=== PATIENT | male | born 1975 | race Caucasian/White ===

== ENCOUNTER 2020-12-13 18:34 | Inpatient (IN) | payer MEDICAID ==
[~2020-12-13] VITALS: Ht 182.9 cm; Wt 95.5 kg
[2020-12-13 19:34] LABS: BASOPHILS # (AUTO) 0.1 X10'3 (0-0.2); BASOPHILS % (AUTO) 0.7 % (0-1); EOSINOPHILS # (AUTO) 0.1 X10'3 (0-0.9); EOSINOPHILS % (AUTO) 0.9 % (0-6); HEMATOCRIT 41.1 % (42.0-52.0); HEMOGLOBIN 13.4 g/dl (14.0-17.9); LYMPHOCYTES # (AUTO) 1.6 X10'3 (1.1-4.8); LYMPHOCYTES % (AUTO) 11.4 % (21-51); MEAN CORPUSCULAR HEMOGLOBIN 31.4 PG (27.0-31.0); MEAN CORPUSCULAR HGB CONC 32.7 g/dL (33.0-36.5); MEAN CORPUSCULAR VOLUME 95.8 FL (78-98); MEAN PLATELET VOLUME 7.9 FL (7.4-10.4); MONOCYTES # (AUTO) 0.7 X10'3 (0-0.9); MONOCYTES % (AUTO) 5.1 % (2-12); NEUTROPHILS # (AUTO) 11.1 X10'3 (1.8-7.7); NEUTROPHILS % (AUTO) 81.9 % (42-75); PLATELET COUNT 322 X10'3 (140-440); RED BLOOD COUNT 4.28 X10'6 (4.70-6.10); RED CELL DISTRIBUTION WIDTH 14.7 % (11.5-14.5); WHITE BLOOD COUNT 13.6 X10'3 (4.5-11.0)
[2020-12-13 19:38] LABS: ALANINE AMINOTRANSFERASE 32 U/L (12-78); ALBUMIN 2.9 G/DL (3.4-5.0); ALBUMIN/GLOBULIN RATIO 0.5 (1.1-1.5); ALKALINE PHOSPHATASE 115 IU/L (46-116); ANION GAP 14 (8-16); ASPARTATE AMINO TRANSFERASE 26 U/L (10-37); BILIRUBIN,TOTAL 1.1 MG/DL (0.1-1.0); BLOOD UREA NITROGEN 13 MG/DL (7-18); BUN/CREATININE RATIO 11.6 (5.4-32.0); CALCIUM 8.7 MG/DL (8.5-10.1); CHLORIDE 104 MMOL/L (99-107); CREATININE 1.12 MG/DL (0.60-1.10); GLUCOSE 110 MG/DL (70-104); POTASSIUM 3.8 MMOL/L (3.5-5.1); SODIUM 139 MMOL/L (135-145); TOTAL CARBON DIOXIDE 21.2 MMOL/L (24-32); TOTAL PROTEIN 8.2 G/DL (6.4-8.2); eGFR 71 ML/MIN
--- NOTE | 2020-12-13 20:03 | NUR ---
PT HAS A WHITE COUNT AND CXR SHOWS PNA, SO BC AND LA ORDERED UNDER SO.
[2020-12-13 20:19] LABS: ETHANOL 0.053 GM/DL (0.0-0.010)
[2020-12-13 20:32] LABS: CLARITY,URINE CLEAR (Clear); COLOR,URINE YELLOW (Yellow); GLUCOSE, URINE NEGATIVE (Neg); KETONES,URINE NEGATIVE (Neg); LEUKOCYTE ESTERASE ,URINE NEGATIVE (Neg); NITRITES, URINE NEGATIVE (Neg); OCCULT BLOOD,URINE NEGATIVE (Neg); PROTEIN,URINE 30 mg/dl (Neg); UROBILINOGEN,URINE 0.2 E.U/dL (0.2-1.0)
[2020-12-13 20:34] LABS: UA COLLECTION TYPE VOIDED
[2020-12-13 20:38] LABS: WBC,URINE NONE SEEN /HPF (0-4)
[2020-12-13 20:39] LABS: BACTERIA,URINE NONE SEEN /HPF (Neg); RBC,URINE NONE SEEN /HPF (0-2); SQUAMOUS EPITHELIAL CELL,UR NONE SEEN /LPF (FEW)
[2020-12-13] MEDS ORDERED: piperacillin/tazo 3.375gm/50ml 50 ML IV ONE (22:45)
[2020-12-13] MEDS ORDERED: vancomycin/NS 1 GM ADD-VANTAGE 250 ML IV ONE (22:45)
[2020-12-13] MEDS ORDERED: iohexol 300mg/ml 100ml inj. ONE (22:54)
[2020-12-13 23:13] LABS: URINE AMPHETAMINE SCREEN POSITIVE (Neg); URINE BARBITUATE SCREEN NEGATIVE (Neg); URINE BENZODIAZEPINES SCREEN NEGATIVE (Neg); URINE CANNABINOID SCREEN POSITIVE (Neg); URINE COCAINE SCREEN NEGATIVE (Neg); URINE METHADONE SCREEN NEGATIVE (Neg); URINE OPIATE SCREEN NEGATIVE (Neg); URINE PHENCYCLIDINE SCREEN NEGATIVE (Neg)
[2020-12-13] MEDS ORDERED: ondansetron/PF 4mg/2ml inj IV ONE (23:15)
[2020-12-13] MEDS: morphine 4 MG/ML inj SYRINge IV PRN (23:39)
[2020-12-13] MEDS ORDERED: morphine 4 MG/ML inj SYRINge IV ONE (23:40)
[2020-12-13] MEDS ORDERED: normal saline 1000ML IV soln IVB ONE (23:45)
[2020-12-13 23:46] LABS: C-REACTIVE PROTEIN 8.62 MG/DL (0.0-0.5)
[2020-12-14] MEDS ORDERED: vancomycin/NS 1 GM ADD-VANTAGE 250 ML IV ONE
[2020-12-14] MEDS ORDERED: LIDOcaine 1% W/epiNEPHrine 1:200,000 10ml vial IJ ONE (00:30)
[2020-12-14] MEDS ORDERED: fentaNYL/PF 50MCG/1 ML 2ML syringe IV ONE (00:55)
[2020-12-14] MEDS ORDERED: metoprolol tartrate 1mg/ml inj IV ONE (01:50)
[2020-12-14] MEDS ORDERED: acetaminophen 325mg tablet PO PRN (04:20)
[2020-12-14] MEDS ORDERED: ondansetron/PF 4mg/2ml inj IV PRN (04:20)
[2020-12-14] MEDS ORDERED: magnesium 4gm in 100ml NS 100 ML IV PRN (04:20)
[2020-12-14] MEDS ORDERED: magnesium 2GM in 50ml NS 50 ML IV PRN (04:20)
[2020-12-14] MEDS ORDERED: potassium Cl 40MEQ/1/2NS 520ml 520 ML IV PRN ×2 (04:20)
[2020-12-14] MEDS ORDERED: morphine 2 MG/ML inj. syringe IV PRN (04:20)
[2020-12-14] MEDS ORDERED: magnesium Cl slow-release 64mg tablet PO PRN (04:20)
[2020-12-14] MEDS ORDERED: potassium Cl 20 mEq SR tablet PO PRN ×2 (04:20)
[2020-12-14] MEDS ORDERED: LIDOcaine 1% 30ml preserv. free vial SQ STA (07:38)
[2020-12-14] MEDS: morphine 4 MG/ML inj SYRINge IV PRN (07:45)
[2020-12-14] MEDS: K and/or MAG REPLACEMENT MC SCH ×2 (08:00→20:00)
[2020-12-14] MEDS ORDERED: furosemide 10 MG/1 ML 10ml inj IV SCH (08:00)
[2020-12-14] MEDS: piperacillin/tazo 4.5gm/100ml 100 ML IV SCH ×2 (08:15→16:29)
[2020-12-14] MEDS: docusate sod 100mg capsule PO SCH ×2 (08:16→21:03)
[2020-12-14 09:15] LABS: BASOPHILS # (AUTO) 0.1 X10'3 (0-0.2); BASOPHILS % (AUTO) 0.5 % (0-1); EOSINOPHILS # (AUTO) 0.2 X10'3 (0-0.9); EOSINOPHILS % (AUTO) 1.7 % (0-6); HEMATOCRIT 39.8 % (42.0-52.0); HEMOGLOBIN 12.9 g/dl (14.0-17.9); LYMPHOCYTES # (AUTO) 2.1 X10'3 (1.1-4.8); LYMPHOCYTES % (AUTO) 17.4 % (21-51); MEAN CORPUSCULAR HGB CONC 32.5 g/dL (33.0-36.5); MEAN CORPUSCULAR VOLUME 95.5 FL (78-98); MEAN PLATELET VOLUME 7.8 FL (7.4-10.4); MONOCYTES # (AUTO) 0.8 X10'3 (0-0.9); MONOCYTES % (AUTO) 6.7 % (2-12); NEUTROPHILS % (AUTO) 73.7 % (42-75); PLATELET COUNT 324 X10'3 (140-440); RED BLOOD COUNT 4.17 X10'6 (4.70-6.10); RED CELL DISTRIBUTION WIDTH 14.9 % (11.5-14.5); WHITE BLOOD COUNT 12.3 X10'3 (4.5-11.0)
[2020-12-14 09:32] LABS: ALANINE AMINOTRANSFERASE 27 U/L (12-78); ALBUMIN 2.8 G/DL (3.4-5.0); ALBUMIN/GLOBULIN RATIO 0.5 (1.1-1.5); ALKALINE PHOSPHATASE 107 IU/L (46-116); ANION GAP 10 (8-16); ASPARTATE AMINO TRANSFERASE 27 U/L (10-37); BILIRUBIN,TOTAL 2.3 MG/DL (0.1-1.0); BLOOD UREA NITROGEN 16 MG/DL (7-18); BUN/CREATININE RATIO 11.9 (5.4-32.0); CALCIUM 8.7 MG/DL (8.5-10.1); CHLORIDE 105 MMOL/L (99-107); CREATININE 1.34 MG/DL (0.60-1.10); GLUCOSE 90 MG/DL (70-104); POTASSIUM 4.4 MMOL/L (3.5-5.1); SODIUM 139 MMOL/L (135-145); TOTAL CARBON DIOXIDE 24.4 MMOL/L (24-32); TOTAL PROTEIN 7.9 G/DL (6.4-8.2); eGFR 57 ML/MIN
[2020-12-14] MEDS: vancomycin/NS 1 GM ADD-VANTAGE 250 ML IV SCH ×2 (12:15→23:59)
[2020-12-14] MEDS ORDERED: MULT-1085 PO (12:39)
--- NOTE | 2020-12-14 13:29 | NUR ---
Patient in room ED 8. I have received report from Shahana and had the opportunity to ask questions and assume patient care.
[2020-12-14 13:45] VITALS: BP 118/78
[2020-12-14 15:00] VITALS: BP 125/87
[2020-12-14] MEDS: morphine 2 MG/ML inj. syringe IV PRN (15:09)
[2020-12-14] MEDS: LORazepam 0.5 MG tablet PO PRN ×2 (15:56→22:08)
[2020-12-14] MEDS: carVEDilol 3.125mg tablet PO SCH ×2 (16:29→21:03)
[2020-12-14] MEDS: lisinopril 5mg tablet PO SCH (16:29)
[2020-12-14 18:00] VITALS: BP 117/94
--- NOTE | 2020-12-14 18:17 | NUR ---
Patient in room MED 309. I have received report from Dakota MOSS and had the opportunity to ask questions and assume patient care.
--- NOTE | 2020-12-14 18:35 | NUR ---
Problems reprioritized. Patient report given, questions answered & plan of care reviewed with Bree MOSS.
[2020-12-14] MEDS: mag hydrox/Alum hydrox/simeth 30ml oral suspension PO PRN (20:59)
[2020-12-14] MEDS: furosemide 40mg/4ml inj IV SCH (21:02)
[2020-12-14] MEDS: lactobacillus rhamnosus 10,000 MMU CELLS/CAPSULE PO SCH (21:03)
[2020-12-14] MEDS: HYDROcodone/acetaminophen 5mg/325mg tablet PO PRN (21:04)
--- NOTE | 2020-12-14 21:17 | NUR ---
ATTEMPTED TO FIND PEDAL PULSES BILATERAL FEET VIA DOPPLER; LEFT POSTERIOR TIBIAL AND PEDAL FOUND, RIGHT FOOT ONLY POSTERIOR TIBIAL FOUND, GAVE LASIX-GOING TO REEVALUATER WITH CARMEN MOSS, IN 15 MINUTES, WILL INFORM MD IF RIGHT FOOT PEDAL PULSE NOT FOUND. Addendum: 12/14/20 at 0448 by Bree Lay RN REASSESSED RIGHT PEDAL PULSE WITH DOPPLER, FOUND SITE, SHANITA
[2020-12-14 22:00] VITALS: BP 125/90
--- NOTE | 2020-12-14 23:18 | NUR ---
GRAM POSITIVE COOCI IN CLUSTERSREPORTED BY LAB, WILL CALL MD FOR NEW ORDERS, POSSIBLE BILATERAL LOWER EXTREMITY VASCULAR ULTRASOUND FOR GRAYISH, EDEMETOUS EXTREMITIES, NON-PAPLPABLE PULSES, RIGHT COLD TO THE TOUCH FOOT,; NEEDS COVID SCREEN ADDITIONALLY DANIEL MOSS
--- NOTE | 2020-12-14 23:56 | NUR ---
DR. OROZCO ORDERED ARTERIAL US IN AM R/O DVT; MG, PHOS, LIPASE, LIPDS, TSH, LACTIC IN AM CHOLMES RN
[2020-12-15] VITALS (7 sets, daily range): BP systolic 85–121; BP diastolic 56–84
[2020-12-15] MEDS: mag hydrox/Alum hydrox/simeth 30ml oral suspension PO PRN (01:37)
[2020-12-15] MEDS: LORazepam 0.5 MG tablet PO PRN ×2 (01:38→20:43)
[2020-12-15] MEDS: HYDROcodone/acetaminophen 5mg/325mg tablet PO PRN ×4 (01:38→20:43)
[2020-12-15] MEDS ORDERED: nitroGLYCERIN 0.4mg SUBLingual tab SL PRN (02:20)
[2020-12-15] MEDS ORDERED: aspirin 325mg tablet, delayed-release (Ecotrin) PO ONE (02:20)
[2020-12-15 05:08] LABS: ANION GAP 12 (8-16); BLOOD UREA NITROGEN 20 MG/DL (7-18); BUN/CREATININE RATIO 14.7 (5.4-32.0); CHLORIDE 97 MMOL/L (99-107); CHOLESTEROL 155 MG/DL (0-200); CREATININE 1.36 MG/DL (0.60-1.10); GLUCOSE 81 MG/DL (70-104); HDL CHOLESTEROL 22 MG/DL (35-60); LDL CHOLESTEROL 122 MG/DL (50-100); LIPASE < 50 U/L (73-393); MAGNESIUM 1.8 MG/DL (1.5-2.4); POTASSIUM 4.6 MMOL/L (3.5-5.1); SODIUM 134 MMOL/L (135-145); TOTAL CARBON DIOXIDE 25.1 MMOL/L (24-32); TRIGLYCERIDES 90 MG/DL (20-135); eGFR 56 ML/MIN
--- NOTE | 2020-12-15 06:16 | NUR ---
Problems reprioritized. Patient report given, questions answered & plan of care reviewed with FLORINA RN.
--- NOTE | 2020-12-15 06:28 | NUR ---
RECEIVED BEDSIDE REPORT FROM RICKY MOSS. UPDATED THE BOARD AND INTRODUCED MYSELF TO PT
[2020-12-15 07:05] LABS: BASOPHILS # (AUTO) 0.1 X10'3 (0-0.2); BASOPHILS % (AUTO) 0.5 % (0-1); EOSINOPHILS # (AUTO) 0.1 X10'3 (0-0.9); EOSINOPHILS % (AUTO) 0.6 % (0-6); HEMATOCRIT 37.6 % (42.0-52.0); HEMOGLOBIN 12.2 g/dl (14.0-17.9); LYMPHOCYTES % (AUTO) 8.1 % (21-51); MEAN CORPUSCULAR HEMOGLOBIN 31.1 PG (27.0-31.0); MEAN CORPUSCULAR HGB CONC 32.5 g/dL (33.0-36.5); MEAN CORPUSCULAR VOLUME 95.7 FL (78-98); MONOCYTES # (AUTO) 1.1 X10'3 (0-0.9); MONOCYTES % (AUTO) 8.8 % (2-12); PLATELET COUNT 289 X10'3 (140-440); RED BLOOD COUNT 3.93 X10'6 (4.70-6.10); RED CELL DISTRIBUTION WIDTH 15.3 % (11.5-14.5); WHITE BLOOD COUNT 12.1 X10'3 (4.5-11.0)
[2020-12-15] MEDS: K and/or MAG REPLACEMENT MC SCH ×2 (08:00→20:00)
[2020-12-15] MEDS: furosemide 40mg/4ml inj IV SCH ×2 (08:54→20:46)
[2020-12-15] MEDS: lactobacillus rhamnosus 10,000 MMU CELLS/CAPSULE PO SCH ×2 (08:55→20:42)
[2020-12-15] MEDS: carVEDilol 3.125mg tablet PO SCH ×2 (08:55→20:00)
[2020-12-15] MEDS: aspirin 81mg tablet.DR PO SCH (08:55)
[2020-12-15] MEDS: docusate sod 100mg capsule PO SCH ×2 (08:55→20:43)
[2020-12-15] MEDS: lisinopril 5mg tablet PO SCH (08:55)
[2020-12-15] MEDS: piperacillin/tazo 4.5gm/100ml 100 ML IV SCH ×3 (08:55→17:14)
--- NOTE | 2020-12-15 10:59 | NUR ---
PAGER ID: [phone] MESSAGE: [phone] JOSELINE ZHOU. TSH 16.28, LACTIC ACID 2.2, WBC 12.1 NO FEVER AT THIS TIME. I DIDNT KNOW HOW YOU WANT TO ADDRESS THE TSH
[2020-12-15] MEDS ORDERED: VANCOMYCIN LEVEL IV ONE (11:30)
[2020-12-15 11:46] LABS: VANCOMYCIN,TROUGH 13.4 UG/ML (6.0-14.0)
[2020-12-15] MEDS: vancomycin/NS 1 GM ADD-VANTAGE 250 ML IV SCH (12:11)
[2020-12-15] MEDS: morphine 2 MG/ML inj. syringe IV PRN ×2 (13:27→22:13)
--- NOTE | 2020-12-15 19:18 | NUR ---
Patient in room MED 309. I have received report from ELEN MOSS and had the opportunity to ask questions and assume patient care.
--- NOTE | 2020-12-15 19:28 | NUR ---
Problems reprioritized. Patient report given, questions answered & plan of care reviewed with Bree.
[2020-12-15] MEDS ORDERED: pneumococcal 23-VAL P-sac vacc 25 mcg/0.5ml vial IMVAC ONE (20:00)
[2020-12-15] MEDS ORDERED: FLU VACC QS2020-21(6MOS UP)/PF 60 MCG/0.5 ML SYRINGE IMVAC ONE (20:00)
[2020-12-16] MEDS: VANCOmycin 1250MG/NS 250ml Bag 250 ML IV SCH ×3 (00:31→23:56)
[2020-12-16] MEDS: piperacillin/tazo 4.5gm/100ml 100 ML IV SCH ×3 (00:33→16:00)
[2020-12-16 03:15] VITALS: BP 114/78
--- NOTE | 2020-12-16 06:15 | NUR ---
Patient in room MED 309. I have received report from raine Giron and had the opportunity to ask questions and assume patient care.
--- NOTE | 2020-12-16 06:26 | NUR ---
Problems reprioritized. Patient report given, questions answered & plan of care reviewed with Khurram MOSS.
[2020-12-16 06:52] LABS: ALBUMIN 2.6 G/DL (3.4-5.0); ANION GAP 12 (8-16); BLOOD UREA NITROGEN 27 MG/DL (7-18); BUN/CREATININE RATIO 22.3 (5.4-32.0); CALCIUM 8.6 MG/DL (8.5-10.1); CHLORIDE 98 MMOL/L (99-107); CREATININE 1.21 MG/DL (0.60-1.10); GLUCOSE 94 MG/DL (70-104); MAGNESIUM 2.3 MG/DL (1.5-2.4); SODIUM 134 MMOL/L (135-145); TOTAL CARBON DIOXIDE 24.3 MMOL/L (24-32); eGFR 65 ML/MIN
[2020-12-16] MEDS: levoTHYROXINE 25mcg tablet PO SCH (07:00)
[2020-12-16 07:03] LABS: POTASSIUM 4.6 MMOL/L (3.5-5.1)
[2020-12-16 07:35] VITALS: BP 100/70
[2020-12-16] MEDS: K and/or MAG REPLACEMENT MC SCH ×2 (08:00→20:00)
[2020-12-16] MEDS: furosemide 40mg/4ml inj IV SCH ×2 (08:37→19:56)
[2020-12-16] MEDS: docusate sod 100mg capsule PO SCH ×3 (08:38→20:00)
[2020-12-16] MEDS: lactobacillus rhamnosus 10,000 MMU CELLS/CAPSULE PO SCH ×2 (08:38→19:56)
[2020-12-16] MEDS: lisinopril 5mg tablet PO SCH (08:38)
[2020-12-16] MEDS: aspirin 81mg tablet.DR PO SCH (08:38)
[2020-12-16] MEDS: carVEDilol 3.125mg tablet PO SCH ×2 (08:38→19:56)
[2020-12-16 09:06] LABS: BASOPHILS # (AUTO) 0.1 X10'3 (0-0.2); BASOPHILS % (AUTO) 0.6 % (0-1); EOSINOPHILS # (AUTO) 0.2 X10'3 (0-0.9); EOSINOPHILS % (AUTO) 2.3 % (0-6); HEMATOCRIT 40.4 % (42.0-52.0); HEMOGLOBIN 13.4 g/dl (14.0-17.9); LYMPHOCYTES # (AUTO) 1.5 X10'3 (1.1-4.8); LYMPHOCYTES % (AUTO) 14.7 % (21-51); MEAN CORPUSCULAR HEMOGLOBIN 31.7 PG (27.0-31.0); MEAN CORPUSCULAR HGB CONC 33.1 g/dL (33.0-36.5); MEAN CORPUSCULAR VOLUME 95.8 FL (78-98); MEAN PLATELET VOLUME 7.9 FL (7.4-10.4); MONOCYTES # (AUTO) 1.1 X10'3 (0-0.9); MONOCYTES % (AUTO) 10.2 % (2-12); NEUTROPHILS # (AUTO) 7.5 X10'3 (1.8-7.7); NEUTROPHILS % (AUTO) 72.2 % (42-75); PLATELET COUNT 288 X10'3 (140-440); RED BLOOD COUNT 4.22 X10'6 (4.70-6.10); RED CELL DISTRIBUTION WIDTH 15.1 % (11.5-14.5); WHITE BLOOD COUNT 10.4 X10'3 (4.5-11.0)
[2020-12-16] MEDS: HYDROcodone/acetaminophen 5mg/325mg tablet PO PRN (09:24)
[2020-12-16] MEDS: LORazepam 0.5 MG tablet PO PRN (09:24)
[2020-12-16] MEDS: morphine 2 MG/ML inj. syringe IV PRN ×2 (10:19→17:07)
[2020-12-16 10:30] VITALS: BP 96/57
[2020-12-16] MEDS ORDERED: LORazepam 0.5 MG tablet PO PRN (11:55)
[2020-12-16] MEDS ORDERED: magnesium hydroxide 30ml (MOM) UD suspension PO PRN (12:00)
[2020-12-16 14:00] VITALS: BP 91/64
--- NOTE | 2020-12-16 18:12 | NUR ---
report recieved from and discussed with Josefa MOSS
--- NOTE | 2020-12-16 18:29 | NUR ---
Problems reprioritized. Patient report given, questions answered & plan of care reviewed with ISA WHALEN.
[2020-12-16 22:00] VITALS: BP 104/75
[2020-12-17] MEDS: piperacillin/tazo 4.5gm/100ml 100 ML IV SCH ×3 (01:57→16:00)
[2020-12-17] MEDS: morphine 2 MG/ML inj. syringe IV PRN ×2 (03:08→10:01)
[2020-12-17 03:47] VITALS: BP 103/76
--- NOTE | 2020-12-17 04:18 | NUR ---
Scrotal dressing change done, area cleaned with saline and sponge gauze and packed with 1/4 inch of curad. patient was pre medicated with 2mg morphine.
[2020-12-17 06:00] VITALS: BP 112/84
[2020-12-17 06:18] LABS: BASOPHILS # (AUTO) 0.1 X10'3 (0-0.2); EOSINOPHILS # (AUTO) 0.3 X10'3 (0-0.9); EOSINOPHILS % (AUTO) 2.2 % (0-6); HEMATOCRIT 38.3 % (42.0-52.0); HEMOGLOBIN 12.5 g/dl (14.0-17.9); LYMPHOCYTES # (AUTO) 1.8 X10'3 (1.1-4.8); LYMPHOCYTES % (AUTO) 14.1 % (21-51); MEAN CORPUSCULAR HGB CONC 32.6 g/dL (33.0-36.5); MONOCYTES # (AUTO) 0.8 X10'3 (0-0.9); MONOCYTES % (AUTO) 6.8 % (2-12); NEUTROPHILS # (AUTO) 9.5 X10'3 (1.8-7.7); NEUTROPHILS % (AUTO) 75.9 % (42-75); PLATELET COUNT 297 X10'3 (140-440); RED BLOOD COUNT 4.03 X10'6 (4.70-6.10); WHITE BLOOD COUNT 12.5 X10'3 (4.5-11.0)
--- NOTE | 2020-12-17 06:22 | NUR ---
report given to and discussed with raine ANDRE
--- NOTE | 2020-12-17 06:29 | NUR ---
Patient in room MED 309. I have received report from raine vincent and had the opportunity to ask questions and assume patient care.
[2020-12-17 06:35] LABS: ALBUMIN 2.7 G/DL (3.4-5.0); ANION GAP 7 (8-16); BLOOD UREA NITROGEN 24 MG/DL (7-18); BUN/CREATININE RATIO 18.3 (5.4-32.0); CALCIUM 8.6 MG/DL (8.5-10.1); CHLORIDE 100 MMOL/L (99-107); CREATININE 1.31 MG/DL (0.60-1.10); GLUCOSE 121 MG/DL (70-104); MAGNESIUM 2.2 MG/DL (1.5-2.4); POTASSIUM 4.9 MMOL/L (3.5-5.1); SODIUM 137 MMOL/L (135-145); TOTAL CARBON DIOXIDE 29.9 MMOL/L (24-32); eGFR 59 ML/MIN
[2020-12-17] MEDS: aspirin 81mg tablet.DR PO SCH (07:57)
[2020-12-17] MEDS: furosemide 40mg/4ml inj IV SCH (07:57)
[2020-12-17] MEDS: lactobacillus rhamnosus 10,000 MMU CELLS/CAPSULE PO SCH (07:58)
[2020-12-17] MEDS: levoTHYROXINE 25mcg tablet PO SCH (07:58)
[2020-12-17] MEDS: lisinopril 5mg tablet PO SCH (07:58)
[2020-12-17] MEDS: docusate sod 100mg capsule PO SCH ×2 (07:59→08:09)
[2020-12-17] MEDS: carVEDilol 3.125mg tablet PO SCH (08:09)
[2020-12-17] MEDS: K and/or MAG REPLACEMENT MC SCH (08:10)
[2020-12-17 10:00] VITALS: BP 108/72
[2020-12-17] MEDS ORDERED: VANCOMYCIN LEVEL IV ONE (11:30)
[2020-12-17 14:00] VITALS: BP 110/68
[2020-12-17] MEDS ORDERED: vancomycin/NS 1 GM ADD-VANTAGE 250 ML IV SCH (14:00)
[2020-12-17] MEDS ORDERED: LEVO25TA7 PO (16:22)
[2020-12-17] MEDS ORDERED: POTA10TA36 PO (16:22)
[2020-12-17] MEDS ORDERED: LISI-642 PO (16:22)
[2020-12-17] MEDS ORDERED: ASPI-1071 PO (16:22)
[2020-12-17] MEDS ORDERED: FURO-149 PO (16:22)
[2020-12-17] MEDS ORDERED: COR3.125T PO (16:22)
--- NOTE | 2020-12-17 17:00 | NUR ---
pt amb in hallways on room air,sao2 with amb remains 97-99% correlating well with heart rate.pt does become sob with amb ,resp rate up 24-28 after amb 40 ft.
--- NOTE | 2020-12-17 17:43 | NUR ---
PAGER ID: [phone] MESSAGE: MANDY [phone], HELGAJUSTUS. Please see Dr. Carter note, recommendation for augmentin on discharge, this is not included in the discharge medications. Please advise. [phone] Josefa
--- NOTE | 2020-12-17 18:30 | NUR ---
Problems reprioritized. Patient report given, questions answered & plan of care reviewed with .raine vincent
--- NOTE | 2020-12-17 19:26 | NUR ---
patient is discharged, all documents signed and questions answered.
[2020-12-19] MEDS ORDERED: VANCOMYCIN LEVEL IV ONE (01:30)
== END 2020-12-17 20:00 | disposition home health service (06) | DRG 720 ==
LOC: ER 18:35 → UNDOADMIN 12-14 04:20 → ED HOLD 12-14 04:20 → MED 3N 12-14 14:14 → ED HOLD 12-14 14:14 → UNDODISIN 12-17 20:00
PROVIDERS: ADMIT Internal Medicine; ATTEND Internal Medicine
PROC: 0V95XZZ Drainage of Scrotum, External Approach (ICD-10-PCS; 2020-12-13)
PROC: BW2G1ZZ Computerized Tomography (CT Scan) of Pelvic Region using Low Osmolar Contrast (ICD-10-PCS; 2020-12-13)
PROC: 0V950ZZ Drainage of Scrotum, Open Approach (ICD-10-PCS; principal; 2020-12-14)
PROC: 3E0234Z Introduction of Serum, Toxoid and Vaccine into Muscle, Percutaneous Approach (ICD-10-PCS; 2020-12-15)
PROC: 3E02340 Introduction of Influenza Vaccine into Muscle, Percutaneous Approach (ICD-10-PCS; 2020-12-15)
DX: A41.9 Sepsis, unspecified organism (principal); E03.9 Hypothyroidism, unspecified; F12.90 Cannabis use, unspecified, uncomplicated; F15.90 Other stimulant use, unspecified, uncomplicated; G89.29 Other chronic pain; I42.9 Cardiomyopathy, unspecified; F17.210 Nicotine dependence, cigarettes, uncomplicated; N43.3 Hydrocele, unspecified; F19.10 Other psychoactive substance abuse, uncomplicated; I50.23 Acute on chronic systolic (congestive) heart failure; L05.91 Pilonidal cyst without abscess; M21.371 Foot drop, right foot; N17.9 Acute kidney failure, unspecified; N49.2 Inflammatory disorders of scrotum; M54.5 Low back pain; Z23 Encounter for immunization; Z88.8 Allergy status to other drugs, medicaments and biological substances; Z71.6 Tobacco abuse counseling
CPT/HCPCS: 10060; 36415; 71045; 72193; 76870; 76937; 80048; 80053; 80061; 80202; 80305; 80320; 81001; 83605; 83690; 83735; 83880; 84100; 84145; 84439; 84443; 84480; 84484; 85025; 85651; 86140; 87040; 87070; 87077; 87081; 90732; 93005; 93306; 93308; 93922; 93970; 93976; 96365; 96366; 96368; 96375; 99285; G0378; J1940; J2270; J2405; J2543; J3010; J3370; J3490; J7030; Q2039; Q9967

== ENCOUNTER 2021-01-22 17:27 | Emergency (ER) | payer MEDICAID ==
[~2021-01-22] VITALS: Ht 182.9 cm; Wt 91.0 kg
[~2021-01-22 17:27] MED LIST: ASPI-1071 PO; COR3.125T PO; FURO-149 PO; LEVO25TA7 PO; LISI-642 PO; MULT-1085 PO; POTA10TA36 PO
[2021-01-22 17:33] VITALS: BP 125/82
[2021-01-22] MEDS ORDERED: DOXYCYCLINE 100MG CAPSULE PO STA (18:37)
[2021-01-22] MEDS ORDERED: CEPH250T PO (18:40)
[2021-01-22] MEDS ORDERED: ondansetron 4mg rapidly disintigrating tab PO ONE (18:40)
[2021-01-22] MEDS ORDERED: cephalexin 250mg capsule PO ONE (18:40)
[2021-01-22] MEDS ORDERED: DOXY100C43 PO (18:40)
== END 2021-01-22 18:50 | disposition home or self-care (01) ==
LOC: ER 17:27
DX: N49.2 Inflammatory disorders of scrotum (principal); G89.29 Other chronic pain; F12.90 Cannabis use, unspecified, uncomplicated; F15.90 Other stimulant use, unspecified, uncomplicated; Z72.89 Other problems related to lifestyle; Z98.890 Other specified postprocedural states; Z88.8 Allergy status to other drugs, medicaments and biological substances; Z79.82 Long term (current) use of aspirin; Z79.899 Other long term (current) drug therapy
CPT/HCPCS: 99284

== ENCOUNTER 2021-03-14 14:42 | Emergency (ER) | payer MEDICAID ==
[~2021-03-14] VITALS: Ht 182.9 cm; Wt 95.0 kg
[2021-03-14 14:52] VITALS: BP 111/78
[2021-03-14] MEDS ORDERED: bacitracin 15gm ointment TP ONE (15:15)
[2021-03-14] MEDS ORDERED: LIDOcaine 1% W/epiNEPHrine 1:200,000 10ml vial IJ ONE (15:15)
== END 2021-03-14 17:29 | disposition home or self-care (01) ==
LOC: ER 14:43
DX: S51.812A Laceration without foreign body of left forearm, initial encounter (principal); G89.29 Other chronic pain; F12.90 Cannabis use, unspecified, uncomplicated; F15.90 Other stimulant use, unspecified, uncomplicated; Z98.890 Other specified postprocedural states; Z72.89 Other problems related to lifestyle; Z88.8 Allergy status to other drugs, medicaments and biological substances; Z79.82 Long term (current) use of aspirin; Z79.899 Other long term (current) drug therapy; X58.XXXA Exposure to other specified factors, initial encounter; Y93.89 Activity, other specified; Y92.89 Other specified places as the place of occurrence of the external cause; Y99.8 Other external cause status
CPT/HCPCS: 12002; 99282

== ENCOUNTER 2021-05-27 03:00 | Emergency (ER) | payer MEDICAID ==
[~2021-05-27] VITALS: Ht 182.9 cm; Wt 97.0 kg
[2021-05-27 03:05] VITALS: BP 154/99
[2021-05-27] MEDS ORDERED: ERYT1OIN6 RIGHTEYE (03:25)
[2021-05-27] MEDS ORDERED: proparacaine 0.5% ophthalmic drops 15ml EACHEYE ONE ×2 (03:25→03:35)
== END 2021-05-27 04:01 | disposition home or self-care (01) ==
LOC: ER 03:02
DX: T15.01XA Foreign body in cornea, right eye, initial encounter (principal); I42.7 Cardiomyopathy due to drug and external agent; G89.29 Other chronic pain; F12.90 Cannabis use, unspecified, uncomplicated; F15.90 Other stimulant use, unspecified, uncomplicated; Z72.89 Other problems related to lifestyle; Z79.82 Long term (current) use of aspirin; Z79.2 Long term (current) use of antibiotics; Z79.899 Other long term (current) drug therapy; Z88.8 Allergy status to other drugs, medicaments and biological substances; X58.XXXA Exposure to other specified factors, initial encounter; Y93.89 Activity, other specified; Y92.89 Other specified places as the place of occurrence of the external cause; Y99.8 Other external cause status
CPT/HCPCS: 65222; 99283; 99284

== ENCOUNTER 2021-09-15 08:30 | Inpatient (IN) | payer MEDICAID ==
[~2021-09-15] VITALS: Ht 182.9 cm; Wt 98.6 kg
[~2021-09-15 08:30] MED LIST changes: -POTA10TA36 PO; +POTA10TA37 PO
[2021-09-15 09:05] LABS: BASOPHILS # (AUTO) 0.2 X10'3 (0-0.2); BASOPHILS % (AUTO) 1.4 % (0-1); EOSINOPHILS # (AUTO) 0.3 X10'3 (0-0.9); EOSINOPHILS % (AUTO) 2.2 % (0-6); HEMATOCRIT 40.7 % (42.0-52.0); HEMOGLOBIN 14.2 g/dl (14.0-17.9); LYMPHOCYTES # (AUTO) 2.9 X10'3 (1.1-4.8); LYMPHOCYTES % (AUTO) 21.5 % (21-51); MEAN CORPUSCULAR HEMOGLOBIN 30.4 PG (27.0-31.0); MEAN CORPUSCULAR HGB CONC 34.9 g/dL (33.0-36.5); MEAN CORPUSCULAR VOLUME 87.2 FL (78-98); MEAN PLATELET VOLUME 8.1 FL (7.4-10.4); MONOCYTES # (AUTO) 0.8 X10'3 (0-0.9); MONOCYTES % (AUTO) 6.1 % (2-12); NEUTROPHILS # (AUTO) 9.3 X10'3 (1.8-7.7); NEUTROPHILS % (AUTO) 68.8 % (42-75); PLATELET COUNT 369 X10'3 (140-440); RED BLOOD COUNT 4.66 X10'6 (4.70-6.10); WHITE BLOOD COUNT 13.5 X10'3 (4.5-11.0)
[2021-09-15 09:40] LABS: ALANINE AMINOTRANSFERASE 22 U/L (12-78); ALBUMIN 3.6 G/DL (3.4-5.0); ALBUMIN/GLOBULIN RATIO 0.7 (1.1-1.5); ALKALINE PHOSPHATASE 108 IU/L (46-116); ANION GAP 3 (8-16); ASPARTATE AMINO TRANSFERASE 17 U/L (10-37); BILIRUBIN,TOTAL 1.1 MG/DL (0.1-1.0); BLOOD UREA NITROGEN 27 MG/DL (7-18); BUN/CREATININE RATIO 21.8 (5.4-32.0); CALCIUM 8.9 MG/DL (8.5-10.1); CHLORIDE 98 MMOL/L (99-107); CREATININE 1.24 MG/DL (0.60-1.10); GLUCOSE 102 MG/DL (70-104); POTASSIUM 4.1 MMOL/L (3.5-5.1); SODIUM 124 MMOL/L (135-145); TOTAL CARBON DIOXIDE 22.8 MMOL/L (24-32); TOTAL PROTEIN 8.7 G/DL (6.4-8.2); eGFR 62 ML/MIN
[2021-09-15] MEDS ORDERED: furosemide 10 MG/1 ML 10ml inj IV ONE (10:05)
[2021-09-15] MEDS ORDERED: mag hydrox/Alum hydrox/simeth 30ml oral suspension PO PRN (10:50)
[2021-09-15] MEDS ORDERED: magnesium 4gm in 100ml NS 100 ML IV PRN (10:50)
[2021-09-15] MEDS ORDERED: ondansetron/PF 4mg/2ml inj IV PRN (10:50)
[2021-09-15] MEDS ORDERED: metoprolol tartrate 1mg/ml inj IV PRN (10:50)
[2021-09-15] MEDS ORDERED: HYDROcodone/acetaminophen 5mg/325mg tablet PO PRN (10:50)
[2021-09-15] MEDS ORDERED: nitroGLYCERIN 0.4mg SUBLingual tab SL PRN (10:50)
[2021-09-15] MEDS ORDERED: morphine 2 MG/ML inj. syringe IV PRN ×2 (10:50)
[2021-09-15] MEDS ORDERED: potassium CL 10mEq/100ml bag 100 ML IV PRN (10:50)
[2021-09-15] MEDS ORDERED: potassium Cl 20 mEq SR tablet PO PRN ×2 (10:50)
[2021-09-15] MEDS ORDERED: aminophylline 250mg/10ml inj. IV PRN (10:50)
[2021-09-15] MEDS ORDERED: magnesium 2GM in 50ml NS 50 ML IV PRN (10:50)
[2021-09-15] MEDS ORDERED: magnesium Cl slow-release 64mg tablet PO PRN (10:50)
[2021-09-15] MEDS ORDERED: acetaminophen 325mg tablet PO PRN ×2 (10:50)
[2021-09-15] MEDS ORDERED: regadenoson 0.4mg/5ml syringe IV ONE (10:50)
[2021-09-15] MEDS ORDERED: albuterol 2.5 MG/3 ML nebule NEB PRN (10:55)
[2021-09-15 11:30] LABS: D-DIMER 0.65 MG/L FEU (0-0.50)
[2021-09-15 11:51] LABS: URINE AMPHETAMINE SCREEN POSITIVE (Neg); URINE BARBITUATE SCREEN NEGATIVE (Neg); URINE BENZODIAZEPINES SCREEN NEGATIVE (Neg); URINE CANNABINOID SCREEN POSITIVE (Neg); URINE COCAINE SCREEN NEGATIVE (Neg); URINE METHADONE SCREEN NEGATIVE (Neg); URINE OPIATE SCREEN NEGATIVE (Neg); URINE PHENCYCLIDINE SCREEN NEGATIVE (Neg)
--- NOTE | 2021-09-15 12:06 | NUR ---
PATIENT REQUESTS SOMETHING TO DRINK, BUT IS NPO PER ORDER. DR. CARMICHAEL PAGED TO CLARIFY DIET ORDER. NUCLEAR MED STATES THAT THE INOCENCIA SCAN WILL BE DONE TOMORROW, SO SHE SHOULD BE KEPT NPO AFTER MIDNIGHT.
--- NOTE | 2021-09-15 14:48 | NUR ---
RECEIVED REPORT FROM ED RN
[2021-09-15 15:44] VITALS: BP 132/91
[2021-09-15] MEDS: HYDROcodone/acetaminophen 10/325mg tab PO PRN ×2 (15:57→22:25)
[2021-09-15] MEDS: nicotine 14mg patch - 24hr TD SCH (15:58)
[2021-09-15] MEDS: normal saline 1000ml 1,000 ML IV SCH (16:07)
[2021-09-15 18:00] VITALS: BP 121/94
--- NOTE | 2021-09-15 18:10 | NUR ---
gave report to raine lynn
[2021-09-15] MEDS: K and/or MAG REPLACEMENT MC SCH (19:58)
[2021-09-15] MEDS: carVEDilol 3.125mg tablet PO SCH (20:00)
[2021-09-15] MEDS: heparin, porcine 5000 units/ml vial SQ SCH (20:00)
[2021-09-15 22:00] VITALS: BP 111/81
[2021-09-15] MEDS: temazepam 15mg capsule PO PRN (22:25)
[2021-09-16 02:00] VITALS: BP 104/81
[2021-09-16 06:40] LABS: BASOPHILS # (AUTO) 0.1 X10'3 (0-0.2); BASOPHILS % (AUTO) 0.7 % (0-1); EOSINOPHILS # (AUTO) 0.4 X10'3 (0-0.9); EOSINOPHILS % (AUTO) 3.8 % (0-6); HEMATOCRIT 45.3 % (42.0-52.0); HEMOGLOBIN 15.3 g/dl (14.0-17.9); LYMPHOCYTES # (AUTO) 2.7 X10'3 (1.1-4.8); LYMPHOCYTES % (AUTO) 26.5 % (21-51); MEAN CORPUSCULAR HEMOGLOBIN 30.2 PG (27.0-31.0); MEAN CORPUSCULAR HGB CONC 33.8 g/dL (33.0-36.5); MEAN CORPUSCULAR VOLUME 89.2 FL (78-98); MEAN PLATELET VOLUME 8.3 FL (7.4-10.4); MONOCYTES # (AUTO) 0.9 X10'3 (0-0.9); NEUTROPHILS # (AUTO) 6.2 X10'3 (1.8-7.7); PLATELET COUNT 390 X10'3 (140-440); RED BLOOD COUNT 5.07 X10'6 (4.70-6.10); RED CELL DISTRIBUTION WIDTH 13.7 % (11.5-14.5); WHITE BLOOD COUNT 10.3 X10'3 (4.5-11.0)
--- NOTE | 2021-09-16 06:41 | NUR ---
Patient in room MED 318. I have received report from ISA Sandoval and had the opportunity to ask questions and assume patient care. Patient asleep in bed and in no acute distress.
[2021-09-16] MEDS: normal saline 1000ml 1,000 ML IV SCH (06:50)
[2021-09-16 07:00] VITALS: BP 114/80
[2021-09-16 07:02] LABS: ALANINE AMINOTRANSFERASE 22 U/L (12-78); ALBUMIN 3.7 G/DL (3.4-5.0); ALBUMIN/GLOBULIN RATIO 0.7 (1.1-1.5); ALKALINE PHOSPHATASE 113 IU/L (46-116); ANION GAP 9 (8-16); ASPARTATE AMINO TRANSFERASE 21 U/L (10-37); BILIRUBIN,TOTAL 1.7 MG/DL (0.1-1.0); BLOOD UREA NITROGEN 32 MG/DL (7-18); BUN/CREATININE RATIO 26.4 (5.4-32.0); CALCIUM 9.2 MG/DL (8.5-10.1); CHLORIDE 99 MMOL/L (99-107); CHOL/HDL RATIO 6.9 (0.00-4.99); CHOLESTEROL 249 MG/DL (0-200); CREATININE 1.21 MG/DL (0.60-1.10); GLUCOSE 90 MG/DL (70-104); HDL CHOLESTEROL 36 MG/DL (35-60); LDL CHOLESTEROL 189 MG/DL (50-100); POTASSIUM 4.4 MMOL/L (3.5-5.1); SODIUM 136 MMOL/L (135-145); TOTAL CARBON DIOXIDE 27.7 MMOL/L (24-32); TOTAL PROTEIN 9.3 G/DL (6.4-8.2); TRIGLYCERIDES 120 MG/DL (20-135); eGFR 64 ML/MIN
--- NOTE | 2021-09-16 07:09 | NUR ---
Paged Dr. Carbone regarding patient's EF and that they are scheduled for the sinan scan this morning. PAGER ID: [phone] MESSAGE: [phone]. ADOLPH TREVIZO. PATIENT'S EF IS 20-25%. WOULD YOU STILL LIKE FOR THE PATIENT TO HAVE A STRESS TEST? THANK YOU. AMADOU MOSS X [phone]
[2021-09-16] MEDS: K and/or MAG REPLACEMENT MC SCH ×2 (08:00→20:00)
[2021-09-16] MEDS: heparin, porcine 5000 units/ml vial SQ SCH ×2 (08:00→20:37)
[2021-09-16] MEDS: carVEDilol 3.125mg tablet PO SCH ×2 (09:05→20:35)
[2021-09-16] MEDS: levoTHYROXINE 25mcg tablet PO SCH (09:05)
[2021-09-16] MEDS: lisinopril 5mg tablet PO SCH (09:06)
[2021-09-16] MEDS: aspirin 81mg, enteric-coated 1 TAB TABLET.DR PO SCH (09:06)
[2021-09-16] MEDS: furosemide 40mg/4ml inj IV SCH (09:07)
[2021-09-16] MEDS: nicotine 14mg patch - 24hr TD SCH (09:08)
--- NOTE | 2021-09-16 09:10 | NUR ---
Problems reprioritized. Patient report given, questions answered & plan of care reviewed with ISA Magaña. Patient stable at transfer of care.
--- NOTE | 2021-09-16 09:15 | NUR ---
Patient in room MED 318. I have received report from Sanaz MOSS and had the opportunity to ask questions and assume patient care.
[2021-09-16 11:00] VITALS: BP 101/62
--- NOTE | 2021-09-16 14:25 | NUR ---
Problems reprioritized. Patient report given, questions answered & plan of care reviewed with Ela MOSS.
--- NOTE | 2021-09-16 14:30 | NUR ---
Patient in room MED 318. I have received report from ISA VASQUEZ, and had the opportunity to ask questions and assume patient care.
[2021-09-16 15:00] VITALS: BP 113/77
--- NOTE | 2021-09-16 18:37 | NUR ---
Problems reprioritized. Patient report given, questions answered & plan of care reviewed with ISA OMALLEY.
[2021-09-16] MEDS: temazepam 15mg capsule PO PRN (20:35)
[2021-09-16] MEDS: HYDROcodone/acetaminophen 10/325mg tab PO PRN (20:36)
[2021-09-16 22:00] VITALS: BP 97/60
[2021-09-17 02:00] VITALS: BP 111/73
[2021-09-17] MEDS: normal saline 1000ml 1,000 ML IV SCH ×2 (02:50→05:33)
[2021-09-17 06:00] VITALS: BP 104/78
[2021-09-17 06:17] LABS: BASOPHILS # (AUTO) 0.1 X10'3 (0-0.2); BASOPHILS % (AUTO) 0.6 % (0-1); EOSINOPHILS # (AUTO) 0.5 X10'3 (0-0.9); EOSINOPHILS % (AUTO) 3.9 % (0-6); HEMATOCRIT 44.1 % (42.0-52.0); HEMOGLOBIN 14.9 g/dl (14.0-17.9); LYMPHOCYTES # (AUTO) 2.1 X10'3 (1.1-4.8); LYMPHOCYTES % (AUTO) 17.8 % (21-51); MEAN CORPUSCULAR HEMOGLOBIN 30.1 PG (27.0-31.0); MEAN CORPUSCULAR HGB CONC 33.8 g/dL (33.0-36.5); MEAN CORPUSCULAR VOLUME 89.1 FL (78-98); MEAN PLATELET VOLUME 7.9 FL (7.4-10.4); MONOCYTES % (AUTO) 8.4 % (2-12); NEUTROPHILS # (AUTO) 8.3 X10'3 (1.8-7.7); NEUTROPHILS % (AUTO) 69.3 % (42-75); PLATELET COUNT 379 X10'3 (140-440); RED BLOOD COUNT 4.95 X10'6 (4.70-6.10); RED CELL DISTRIBUTION WIDTH 13.8 % (11.5-14.5); WHITE BLOOD COUNT 11.9 X10'3 (4.5-11.0)
[2021-09-17 06:24] LABS: ALANINE AMINOTRANSFERASE 22 U/L (12-78); ALBUMIN 3.4 G/DL (3.4-5.0); ALBUMIN/GLOBULIN RATIO 0.7 (1.1-1.5); ALKALINE PHOSPHATASE 106 IU/L (46-116); ANION GAP 8 (8-16); ASPARTATE AMINO TRANSFERASE 17 U/L (10-37); BILIRUBIN,TOTAL 1.5 MG/DL (0.1-1.0); BLOOD UREA NITROGEN 30 MG/DL (7-18); BUN/CREATININE RATIO 26.5 (5.4-32.0); CALCIUM 8.9 MG/DL (8.5-10.1); CHLORIDE 101 MMOL/L (99-107); CREATININE 1.13 MG/DL (0.60-1.10); GLUCOSE 82 MG/DL (70-104); POTASSIUM 4.4 MMOL/L (3.5-5.1); SODIUM 136 MMOL/L (135-145); TOTAL CARBON DIOXIDE 26.7 MMOL/L (24-32); TOTAL PROTEIN 8.4 G/DL (6.4-8.2); eGFR 70 ML/MIN
[2021-09-17] MEDS: K and/or MAG REPLACEMENT MC SCH (08:00)
[2021-09-17] MEDS: nicotine 14mg patch - 24hr TD SCH (08:00)
[2021-09-17] MEDS: furosemide 40mg/4ml inj IV SCH (09:27)
[2021-09-17] MEDS: heparin, porcine 5000 units/ml vial SQ SCH (09:27)
[2021-09-17] MEDS: aspirin 81mg, enteric-coated 1 TAB TABLET.DR PO SCH (09:28)
[2021-09-17] MEDS: levoTHYROXINE 25mcg tablet PO SCH (09:29)
[2021-09-17] MEDS: carVEDilol 3.125mg tablet PO SCH (09:29)
[2021-09-17] MEDS: lisinopril 5mg tablet PO SCH (09:30)
[2021-09-17 10:00] VITALS: BP 112/78
--- NOTE | 2021-09-17 10:30 | NUR ---
Patient waiting on life vest, will discharge after fitting.
--- NOTE | 2021-09-17 13:23 | NUR ---
Patient discharged on paper, all paper work completed and signed.
--- NOTE | 2021-09-17 14:16 | NUR ---
Patient discharged to [facility] by . Patient A&Ox4, VSS. Patient will be fitted with Life Vest at his home. Home medications sent home on discharge. Patient aware of next home doses. No new medications on discharge. Patient aware to follow up with PCP and to call for appointment. Patient educated on discharge with verbal acknowledgement from patient of understanding.
== END 2021-09-17 13:40 | disposition home or self-care (01) | DRG 194 ==
LOC: ER 08:31 → ED HOLD 10:53 → EDBEDREQ 14:27 → MED 3N 14:59
PROVIDERS: ADMIT Internal Medicine; ATTEND Internal Medicine
PROC: 5A0935A Assistance with Respiratory Ventilation, Less than 24 Consecutive Hours, High Flow/Velocity Cannula (ICD-10-PCS; principal; 2021-09-17)
DX: I50.23 Acute on chronic systolic (congestive) heart failure (principal); N17.9 Acute kidney failure, unspecified; E87.1 Hypo-osmolality and hyponatremia; I42.7 Cardiomyopathy due to drug and external agent; F12.90 Cannabis use, unspecified, uncomplicated; F15.10 Other stimulant abuse, uncomplicated; E03.9 Hypothyroidism, unspecified; Z20.822 Contact with and (suspected) exposure to COVID-19; F17.210 Nicotine dependence, cigarettes, uncomplicated; G89.29 Other chronic pain; M54.9 Dorsalgia, unspecified; R26.2 Difficulty in walking, not elsewhere classified; R79.89 Other specified abnormal findings of blood chemistry; Z72.89 Other problems related to lifestyle; Z88.8 Allergy status to other drugs, medicaments and biological substances
CPT/HCPCS: 36415; 71045; 80053; 80061; 80305; 83880; 84484; 85025; 85379; 87081; 87635; 93005; 93306; 96374; 99285; G0378; J1644; J1940; J7030

== ENCOUNTER 2021-11-06 06:45 | Inpatient (IN) | payer MEDICAID ==
[~2021-11-06] VITALS: Ht 180.3 cm; Wt 104.0 kg
--- NOTE | 2021-11-06 07:23 | NUR ---
Pt admits to using meth 4 days ago. Now states that he has severe sob. Lung sounds are coarse throughout all thompson and sats >98% on RA. Also, has a rash on B hands and neck.
--- NOTE | 2021-11-06 07:27 | NUR ---
Pt is wearing knee high compression socks. His B LE are painful to touch. He has ulcers under his socks.
--- NOTE | 2021-11-06 07:51 | NUR ---
Pt stated that he has doubled up on his lasix and potassium. He provider is not aware.
[2021-11-06 08:20] VITALS: BP 119/87
[2021-11-06 08:41] LABS: BASOPHILS # (AUTO) 0.2 X10'3 (0-0.2); BASOPHILS % (AUTO) 1.8 % (0-1); EOSINOPHILS # (AUTO) 0.2 X10'3 (0-0.9); EOSINOPHILS % (AUTO) 1.5 % (0-6); HEMATOCRIT 37.4 % (42.0-52.0); HEMOGLOBIN 12.5 g/dl (14.0-17.9); LYMPHOCYTES # (AUTO) 1.8 X10'3 (1.1-4.8); LYMPHOCYTES % (AUTO) 14.5 % (21-51); MEAN CORPUSCULAR HEMOGLOBIN 29.3 PG (27.0-31.0); MEAN CORPUSCULAR HGB CONC 33.4 g/dL (33.0-36.5); MEAN CORPUSCULAR VOLUME 87.9 FL (78-98); MEAN PLATELET VOLUME 7.4 FL (7.4-10.4); MONOCYTES # (AUTO) 0.9 X10'3 (0-0.9); MONOCYTES % (AUTO) 6.9 % (2-12); NEUTROPHILS # (AUTO) 9.5 X10'3 (1.8-7.7); NEUTROPHILS % (AUTO) 75.3 % (42-75); PLATELET COUNT 412 X10'3 (140-440); RED BLOOD COUNT 4.25 X10'6 (4.70-6.10); RED CELL DISTRIBUTION WIDTH 14.6 % (11.5-14.5); WHITE BLOOD COUNT 12.6 X10'3 (4.5-11.0)
[2021-11-06 08:51] LABS: ALANINE AMINOTRANSFERASE 71 U/L (12-78); ALBUMIN 3.3 G/DL (3.4-5.0); ALBUMIN/GLOBULIN RATIO 0.6 (1.1-1.5); ALKALINE PHOSPHATASE 106 IU/L (46-116); ANION GAP 12 (8-16); ASPARTATE AMINO TRANSFERASE 72 U/L (10-37); BILIRUBIN,TOTAL 2.2 MG/DL (0.1-1.0); BLOOD UREA NITROGEN 26 MG/DL (7-18); BUN/CREATININE RATIO 16.9 (5.4-32.0); CALCIUM 8.6 MG/DL (8.5-10.1); CHLORIDE 100 MMOL/L (99-107); CREATININE 1.54 MG/DL (0.60-1.10); GLUCOSE 95 MG/DL (70-104); POTASSIUM 4.2 MMOL/L (3.5-5.1); SODIUM 137 MMOL/L (135-145); TOTAL PROTEIN 8.4 G/DL (6.4-8.2); eGFR 49 ML/MIN
[2021-11-06] MEDS ORDERED: aspirin 81mg tab.chew PO ONE (09:30)
[2021-11-06] MEDS ORDERED: heparin 10,000 units/1 ML INJ IV ONE ×2 (09:30→09:35)
[2021-11-06] MEDS: heparin 25,000 UNIT/250ml bag 250 ML IV SCH (09:30)
[2021-11-06 10:11] LABS: APTT 27 SECONDS (22-32); D-DIMER 2.92 MG/L FEU (0-0.50)
[2021-11-06] MEDS ORDERED: magnesium hydroxide 30ml (MOM) UD suspension PO PRN (10:55)
[2021-11-06] MEDS ORDERED: potassium CL 10mEq/100ml bag 100 ML IV PRN (10:55)
[2021-11-06] MEDS ORDERED: magnesium Cl slow-release 64mg tablet PO PRN (10:55)
[2021-11-06] MEDS ORDERED: ondansetron/PF 4mg/2ml inj IV PRN (10:55)
[2021-11-06] MEDS ORDERED: morphine 2 MG/ML inj. syringe IV PRN (10:55)
[2021-11-06] MEDS ORDERED: acetaminophen 325mg tablet PO PRN ×2 (10:55)
[2021-11-06] MEDS ORDERED: magnesium 2GM in 50ml NS 50 ML IV PRN (10:55)
[2021-11-06] MEDS ORDERED: magnesium 4gm in 100ml NS 100 ML IV PRN (10:55)
[2021-11-06] MEDS ORDERED: heparin 10,000 units/1 ML INJ IV PRN (10:55)
[2021-11-06] MEDS ORDERED: heparin 25,000 UNIT/250ml bag 250 ML IV SCH (10:55)
[2021-11-06] MEDS ORDERED: potassium Cl 20 mEq SR tablet PO PRN ×2 (10:55)
[2021-11-06] MEDS ORDERED: mag hydrox/Alum hydrox/simeth 30ml oral suspension PO PRN (10:55)
[2021-11-06] MEDS ORDERED: HYDROcodone/acetaminophen 10/325mg tab PO PRN (10:55)
[2021-11-06] MEDS ORDERED: iohexol 350MG/ML 100ml bottle IV ONE (11:04)
[2021-11-06 11:31] LABS: MAGNESIUM 2.2 MG/DL (1.5-2.4)
--- NOTE | 2021-11-06 12:05 | NUR ---
Pt taken to CT by telecommunication tower technician.
[2021-11-06] MEDS: CefTRIAXone/D5W-Rocephin 1gm 50 ML IV SCH (12:36)
[2021-11-06] MEDS: nicotine 14mg patch - 24hr TD SCH (12:36)
[2021-11-06] MEDS: furosemide 20 MG/2 ML vial IV SCH ×2 (12:37→20:17)
[2021-11-06] MEDS: normal saline 1000ml 1,000 ML IV SCH (12:37)
[2021-11-06] MEDS ORDERED: POTA10CA44 PO (12:46)
[2021-11-06] MEDS ORDERED: ASPI-611 PO (12:46)
[2021-11-06] MEDS ORDERED: CARV3.122 PO (12:46)
[2021-11-06] MEDS ORDERED: LISI5TAB22 PO (12:46)
[2021-11-06] MEDS ORDERED: LEVO50TA8 PO (12:46)
[2021-11-06] MEDS ORDERED: FURO40TA4 PO (12:46)
[2021-11-06] MEDS ORDERED: GABA-530 PO (12:47)
--- NOTE | 2021-11-06 12:53 | NUR ---
Pt continues to c/o pain in B LE.
[2021-11-06] MEDS: gabapentin 100mg capsule PO SCH (16:06)
[2021-11-06 16:14] LABS: URINE AMPHETAMINE SCREEN POSITIVE (Neg); URINE BARBITUATE SCREEN NEGATIVE (Neg); URINE BENZODIAZEPINES SCREEN NEGATIVE (Neg); URINE CANNABINOID SCREEN POSITIVE (Neg); URINE COCAINE SCREEN NEGATIVE (Neg); URINE METHADONE SCREEN NEGATIVE (Neg); URINE OPIATE SCREEN NEGATIVE (Neg); URINE PHENCYCLIDINE SCREEN NEGATIVE (Neg)
--- NOTE | 2021-11-06 16:16 | NUR ---
Attempted to call and give report twice with no results. Both the charge nurse and I tried on 2 separate occations.
[2021-11-06 16:20] LABS: CLARITY,URINE CLEAR (Clear); COLOR,URINE YELLOW (Yellow); GLUCOSE, URINE NEGATIVE (Neg); KETONES,URINE NEGATIVE (Neg); LEUKOCYTE ESTERASE ,URINE NEGATIVE (Neg); NITRITES, URINE NEGATIVE (Neg); OCCULT BLOOD,URINE NEGATIVE (Neg); PH,URINE 5.5 (4.8-8.0); PROTEIN,URINE NEGATIVE (Neg); UA COLLECTION TYPE NON-SPECIFIED; UROBILINOGEN,URINE 0.2 E.U/dL (0.2-1.0)
--- NOTE | 2021-11-06 16:41 | NUR ---
Report given to ISA Saleem in PCU.
[2021-11-06 17:00] VITALS: BP 119/87
[2021-11-06 17:34] LABS: APTT 32 SECONDS (22-32)
--- NOTE | 2021-11-06 19:39 | NUR ---
Patient received from the ED at 1700 with no distress noted. He is alert and oriented X4. He denied pain on arrival to the unit. Patient was made comfortable in bed, vital signs taken and call light in reach. Report given to receiving nurse.
--- NOTE | 2021-11-06 19:39 | NUR ---
Problems reprioritized. Patient report given, questions answered & plan of care reviewed with Sarahi.
[2021-11-06] MEDS: K and/or MAG REPLACEMENT MC SCH (20:00)
[2021-11-06 20:20] VITALS: BP 119/87
[2021-11-06] MEDS: carVEDilol 3.125mg tablet PO SCH (20:20)
[2021-11-06] MEDS: docusate sod 100mg capsule PO SCH (20:20)
[2021-11-07] MEDS: LORazepam 1 MG tablet PO PRN ×2 (00:14→08:15)
[2021-11-07] MEDS: temazepam 15mg capsule PO PRN (00:15)
[2021-11-07] MEDS: gabapentin 100mg capsule PO SCH ×3 (00:16→15:55)
[2021-11-07 00:44] LABS: APTT 33 SECONDS (22-32)
[2021-11-07 02:00] VITALS: BP 108/70
[2021-11-07] MEDS: heparin 10,000 units/1 ML INJ IV PRN ×2 (03:25→11:03)
[2021-11-07 07:00] VITALS: BP 127/93
[2021-11-07 07:10] LABS: BASOPHILS # (AUTO) 0.1 X10'3 (0-0.2); BASOPHILS % (AUTO) 0.9 % (0-1); EOSINOPHILS # (AUTO) 0.2 X10'3 (0-0.9); EOSINOPHILS % (AUTO) 1.4 % (0-6); HEMATOCRIT 40.4 % (42.0-52.0); HEMOGLOBIN 13.2 g/dl (14.0-17.9); LYMPHOCYTES # (AUTO) 2.5 X10'3 (1.1-4.8); LYMPHOCYTES % (AUTO) 20.9 % (21-51); MEAN CORPUSCULAR HEMOGLOBIN 29.2 PG (27.0-31.0); MEAN CORPUSCULAR HGB CONC 32.7 g/dL (33.0-36.5); MEAN CORPUSCULAR VOLUME 89.1 FL (78-98); MEAN PLATELET VOLUME 7.7 FL (7.4-10.4); MONOCYTES # (AUTO) 0.8 X10'3 (0-0.9); NEUTROPHILS # (AUTO) 8.2 X10'3 (1.8-7.7); NEUTROPHILS % (AUTO) 69.8 % (42-75); PLATELET COUNT 441 X10'3 (140-440); RED BLOOD COUNT 4.53 X10'6 (4.70-6.10); RED CELL DISTRIBUTION WIDTH 14.8 % (11.5-14.5); WHITE BLOOD COUNT 11.7 X10'3 (4.5-11.0)
[2021-11-07 07:20] LABS: ALANINE AMINOTRANSFERASE 116 U/L (12-78); ALBUMIN 3.6 G/DL (3.4-5.0); ALBUMIN/GLOBULIN RATIO 0.7 (1.1-1.5); ALKALINE PHOSPHATASE 120 IU/L (46-116); ANION GAP 13 (8-16); BILIRUBIN,TOTAL 3.5 MG/DL (0.1-1.0); BLOOD UREA NITROGEN 31 MG/DL (7-18); BUN/CREATININE RATIO 21.4 (5.4-32.0); CALCIUM 8.8 MG/DL (8.5-10.1); CHLORIDE 99 MMOL/L (99-107); CREATININE 1.45 MG/DL (0.60-1.10); GLUCOSE 96 MG/DL (70-104); MAGNESIUM 2.3 MG/DL (1.5-2.4); SODIUM 136 MMOL/L (135-145); TOTAL CARBON DIOXIDE 23.9 MMOL/L (24-32); TOTAL PROTEIN 9.1 G/DL (6.4-8.2); eGFR 52 ML/MIN
[2021-11-07 07:21] LABS: ASPARTATE AMINO TRANSFERASE 116 U/L (10-37); POTASSIUM 4.2 MMOL/L (3.5-5.1)
[2021-11-07] MEDS: K and/or MAG REPLACEMENT MC SCH ×2 (08:00→20:00)
[2021-11-07] MEDS: furosemide 20 MG/2 ML vial IV SCH (08:12)
[2021-11-07] MEDS: aspirin 81mg, enteric-coated 1 TAB TABLET.DR PO SCH (08:13)
[2021-11-07] MEDS: lisinopril 5mg tablet PO SCH (08:14)
[2021-11-07] MEDS: docusate sod 100mg capsule PO SCH ×2 (08:15→20:16)
[2021-11-07] MEDS: carVEDilol 3.125mg tablet PO SCH ×2 (08:15→20:16)
[2021-11-07] MEDS: nicotine 14mg patch - 24hr TD SCH (08:15)
[2021-11-07] MEDS: potassium chloride 10mEq ER tablet PO SCH (08:18)
[2021-11-07] MEDS: CefTRIAXone/D5W-Rocephin 1gm 50 ML IV SCH (08:19)
[2021-11-07] MEDS: levoTHYROXINE 25mcg tablet PO SCH (08:30)
[2021-11-07] MEDS ORDERED: LORazepam 2 mg/ml vial IV PRN (10:05)
[2021-11-07] MEDS: cetirizine 10mg tablet PO SCH (10:55)
[2021-11-07 11:00] VITALS: BP 101/74
[2021-11-07] MEDS: heparin 25,000 UNIT/250ml bag 250 ML IV SCH (11:04)
[2021-11-07 15:00] VITALS: BP 114/68
--- NOTE | 2021-11-07 15:27 | NUR ---
WOUND INFECTION EDUCATION PROVIDED BY WOUND CARE 1. Patient instructed to call their primary doctor, or go the ED immediately if any of the following symptoms occur: * Increased pain in wound * Increase in drainage from the wound * Redness in the skin surrounding the wound * Warmth in the skin surrounding the wound * Bleeding from the wound * Temperature of 101 or greater 2. If any of these occur while in the hospital tell a nurse immediately. PRESSURE ULCER EDUCATION: DEFINITION: A pressure ulcer is an area of skin that breaks down when you stay in one position too long. The constant pressure against the skin reduces the blood flow to that area and the affected tissue dies. CAUSES: "Being bedridden or in a wheelchair "Fragile skin "Having a chronic condition, such as diabetes or vascular disease "Inability to move certain parts of your body without assistance "Older age "Incontinence of urine or stool SYMPTOMS: "A reddened area that DOES NOT turn white when pressed on - this can be the beginning of a pressure ulcer "A blister, deep sore or a crater - these can be advanced pressure ulcers FIRST AID: "Relieve the pressure on this area "Keep the area clean and dry "Call your primary doctor if you see any of the above symptoms "DO NOT massage the area "DO NOT use a donut shaped or ring shaped pillow- these actually interfere with the blood flow and cause complications PREVENTION: "Check for pressure ulcers everyday "Change position at least every two hours to relieve pressure "Use items that help relieve pressure- pillows, sheepskin, foam padding, and powders. "Keep skin clean and dry "Eat healthy well balanced meals "Exercise daily IF YOU SEE ANY OF THESE SYMPTOMS WHILE IN THE HOSPITAL - TELL YOUR NURSE IMMEDIATELY. IF YOU SEE ANY OF THESE SYMPTOMS WHILE AT HOME OR HAVE ANY QUESTIONS OR CONCERNS ABOUT PRESSURE ULCERS - CALL YOUR PRIMARY DOCTOR IMMEDIATELY. Addendum: 11/07/21 at 1528 by Annette Burks RN Amended: Links added.
[2021-11-07] MEDS: VANCOMYCIN 1GM/200ML IVPB 200 ML IV SCH (15:54)
[2021-11-07 18:00] VITALS: BP 111/82
--- NOTE | 2021-11-07 18:45 | NUR ---
Problems reprioritized. Patient report given, questions answered & plan of care reviewed with Rico.
[2021-11-07] MEDS: furosemide 40mg/4ml inj IV SCH (20:16)
[2021-11-07] MEDS: enoxaparin 40mg/0.4ml syringe SUBCUT SCH (20:16)
[2021-11-07] MEDS: mineral oil/petrolatum, white cream 113gm jar TP SCH (20:22)
[2021-11-07 22:00] VITALS: BP 104/71
[2021-11-08] MEDS: gabapentin 100mg capsule PO SCH ×3 (01:03→17:09)
[2021-11-08] MEDS: VANCOMYCIN 1GM/200ML IVPB 200 ML IV SCH ×2 (01:04→14:00)
[2021-11-08 02:00] VITALS: BP 107/68
[2021-11-08] MEDS: ipratropium/albuterol 3ml nebule NEB PRN ×2 (03:37→20:11)
[2021-11-08 07:00] VITALS: BP 105/70
--- NOTE | 2021-11-08 07:34 | NUR ---
Patient in room PCU 3026. I have received report from Rico and had the opportunity to ask questions and assume patient care.
[2021-11-08] MEDS: docusate sod 100mg capsule PO SCH ×2 (08:00→20:00)
[2021-11-08] MEDS: aspirin 81mg, enteric-coated 1 TAB TABLET.DR PO SCH (08:00)
[2021-11-08] MEDS: K and/or MAG REPLACEMENT MC SCH ×2 (08:00→20:00)
[2021-11-08 08:53] LABS: BASOPHILS # (AUTO) 0.1 X10'3 (0-0.2); BASOPHILS % (AUTO) 0.6 % (0-1); EOSINOPHILS # (AUTO) 0.2 X10'3 (0-0.9); EOSINOPHILS % (AUTO) 1.7 % (0-6); HEMOGLOBIN 12.8 g/dl (14.0-17.9); LYMPHOCYTES # (AUTO) 1.8 X10'3 (1.1-4.8); LYMPHOCYTES % (AUTO) 15.4 % (21-51); MEAN CORPUSCULAR HEMOGLOBIN 29.1 PG (27.0-31.0); MEAN CORPUSCULAR HGB CONC 32.7 g/dL (33.0-36.5); MEAN CORPUSCULAR VOLUME 89.1 FL (78-98); MEAN PLATELET VOLUME 7.7 FL (7.4-10.4); MONOCYTES # (AUTO) 1.1 X10'3 (0-0.9); MONOCYTES % (AUTO) 9.4 % (2-12); NEUTROPHILS # (AUTO) 8.3 X10'3 (1.8-7.7); NEUTROPHILS % (AUTO) 72.9 % (42-75); PLATELET COUNT 360 X10'3 (140-440); RED BLOOD COUNT 4.38 X10'6 (4.70-6.10); RED CELL DISTRIBUTION WIDTH 15.1 % (11.5-14.5); WHITE BLOOD COUNT 11.4 X10'3 (4.5-11.0)
[2021-11-08] MEDS: levoTHYROXINE 25mcg tablet PO SCH (09:58)
[2021-11-08] MEDS: lisinopril 5mg tablet PO SCH (09:59)
[2021-11-08] MEDS: LORazepam 1 MG tablet PO PRN (09:59)
[2021-11-08] MEDS: carVEDilol 3.125mg tablet PO SCH ×2 (10:00→20:33)
[2021-11-08] MEDS: furosemide 40mg/4ml inj IV SCH ×2 (10:00→20:35)
[2021-11-08] MEDS: cetirizine 10mg tablet PO SCH (10:00)
[2021-11-08] MEDS: enoxaparin 40mg/0.4ml syringe SUBCUT SCH ×2 (10:01→20:34)
[2021-11-08] MEDS: CefTRIAXone/D5W-Rocephin 1gm 50 ML IV SCH (10:07)
[2021-11-08] MEDS: nicotine 14mg patch - 24hr TD SCH (10:08)
[2021-11-08] MEDS: potassium chloride 10mEq ER tablet PO SCH (10:08)
[2021-11-08] MEDS: mineral oil/petrolatum, white cream 113gm jar TP SCH ×2 (10:18→20:35)
[2021-11-08 10:58] LABS: ALANINE AMINOTRANSFERASE 110 U/L (12-78); ALBUMIN 3.3 G/DL (3.4-5.0); ALBUMIN/GLOBULIN RATIO 0.7 (1.1-1.5); ALKALINE PHOSPHATASE 119 IU/L (46-116); ANION GAP 15 (8-16); ASPARTATE AMINO TRANSFERASE 90 U/L (10-37); BLOOD UREA NITROGEN 35 MG/DL (7-18); BUN/CREATININE RATIO 23.3 (5.4-32.0); CALCIUM 8.6 MG/DL (8.5-10.1); CHLORIDE 99 MMOL/L (99-107); GLUCOSE 81 MG/DL (70-104); MAGNESIUM 2.4 MG/DL (1.5-2.4); POTASSIUM 4.1 MMOL/L (3.5-5.1); SODIUM 137 MMOL/L (135-145); TOTAL CARBON DIOXIDE 22.8 MMOL/L (24-32); TOTAL PROTEIN 7.9 G/DL (6.4-8.2); eGFR 50 ML/MIN
[2021-11-08 11:00] VITALS: BP 106/80
--- NOTE | 2021-11-08 11:27 | NUR ---
Met with patient in regards to substance use and to see if patient was interested in resources for treatment options. Patient would like to go to an outpatient rehab. I gave patient [facility] number to call and my card to call me if he had any questions.
[2021-11-08] MEDS: normal saline 1000ml 1,000 ML IV SCH (14:01)
[2021-11-08 15:00] VITALS: BP 99/73
[2021-11-08] MEDS ORDERED: iohexol 350 MG/ML 50ML vial IV ONE (15:30)
[2021-11-08] MEDS ORDERED: iohexol 350MG/ML 100ml bottle IV ONE (15:30)
[2021-11-08 19:00] VITALS: BP 103/75
--- NOTE | 2021-11-08 19:12 | NUR ---
Problems reprioritized. Patient report given, questions answered & plan of care reviewed with Makeda.
[2021-11-08 22:00] VITALS: BP 100/68
[2021-11-09] MEDS: piperacillin/tazo 3.375gm/50ml 50 ML IV SCH ×3 (00:32→15:42)
[2021-11-09] MEDS: gabapentin 100mg capsule PO SCH ×3 (00:33→15:42)
[2021-11-09] MEDS ORDERED: VANCOMYCIN LEVEL IV ONE (01:30)
[2021-11-09 02:00] VITALS: BP 105/70
[2021-11-09 04:02] LABS: ALANINE AMINOTRANSFERASE 97 U/L (12-78); ALBUMIN 3.1 G/DL (3.4-5.0); ALBUMIN/GLOBULIN RATIO 0.6 (1.1-1.5); ALKALINE PHOSPHATASE 107 IU/L (46-116); ANION GAP 10 (8-16); ASPARTATE AMINO TRANSFERASE 63 U/L (10-37); BILIRUBIN,TOTAL 1.2 MG/DL (0.1-1.0); BLOOD UREA NITROGEN 37 MG/DL (7-18); BUN/CREATININE RATIO 25.9 (5.4-32.0); CALCIUM 8.2 MG/DL (8.5-10.1); CHLORIDE 101 MMOL/L (99-107); CREATININE 1.43 MG/DL (0.60-1.10); GLUCOSE 95 MG/DL (70-104); POTASSIUM 4.5 MMOL/L (3.5-5.1); SODIUM 137 MMOL/L (135-145); TOTAL CARBON DIOXIDE 26.1 MMOL/L (24-32); eGFR 53 ML/MIN
[2021-11-09 04:12] LABS: MAGNESIUM 2.4 MG/DL (1.5-2.4); VANCOMYCIN,TROUGH 16.1 UG/ML (6.0-14.0)
[2021-11-09] MEDS: VANCOMYCIN 1GM/200ML IVPB 200 ML IV SCH ×2 (04:42→14:31)
--- NOTE | 2021-11-09 04:45 | NUR ---
11/09/21 - 2231 Note on: ZHOU TREVIZO V Pharmacist consulted regarding Vanco through.
--- NOTE | 2021-11-09 06:26 | NUR ---
Patient in room PCU 3026. I have received report from Makeda and had the opportunity to ask questions and assume patient care.
[2021-11-09 06:45] LABS: BASOPHILS # (AUTO) 0.1 X10'3 (0-0.2); EOSINOPHILS # (AUTO) 0.3 X10'3 (0-0.9); EOSINOPHILS % (AUTO) 2.6 % (0-6); HEMATOCRIT 34.9 % (42.0-52.0); HEMOGLOBIN 11.7 g/dl (14.0-17.9); LYMPHOCYTES # (AUTO) 1.9 X10'3 (1.1-4.8); LYMPHOCYTES % (AUTO) 18.2 % (21-51); MEAN CORPUSCULAR HEMOGLOBIN 29.9 PG (27.0-31.0); MEAN CORPUSCULAR HGB CONC 33.5 g/dL (33.0-36.5); MEAN CORPUSCULAR VOLUME 89.2 FL (78-98); MEAN PLATELET VOLUME 7.6 FL (7.4-10.4); MONOCYTES # (AUTO) 0.7 X10'3 (0-0.9); MONOCYTES % (AUTO) 6.9 % (2-12); NEUTROPHILS # (AUTO) 7.5 X10'3 (1.8-7.7); NEUTROPHILS % (AUTO) 71.3 % (42-75); PLATELET COUNT 389 X10'3 (140-440); RED BLOOD COUNT 3.92 X10'6 (4.70-6.10); WHITE BLOOD COUNT 10.5 X10'3 (4.5-11.0)
--- NOTE | 2021-11-09 06:49 | NUR ---
Problems reprioritized. Patient report given, questions answered & plan of care reviewed with ISA BECK.
[2021-11-09 07:00] VITALS: BP 104/76
[2021-11-09] MEDS: K and/or MAG REPLACEMENT MC SCH ×2 (08:00→20:00)
[2021-11-09] MEDS: levoTHYROXINE 25mcg tablet PO SCH (08:08)
[2021-11-09] MEDS: furosemide 40mg/4ml inj IV SCH ×2 (08:08→21:22)
[2021-11-09] MEDS: cetirizine 10mg tablet PO SCH (08:09)
[2021-11-09] MEDS: carVEDilol 3.125mg tablet PO SCH ×2 (08:09→21:22)
[2021-11-09] MEDS: docusate sod 100mg capsule PO SCH ×2 (08:09→20:00)
[2021-11-09] MEDS: potassium chloride 10mEq ER tablet PO SCH (08:10)
[2021-11-09] MEDS: aspirin 81mg, enteric-coated 1 TAB TABLET.DR PO SCH (08:10)
[2021-11-09] MEDS: lisinopril 5mg tablet PO SCH (08:10)
[2021-11-09] MEDS: nicotine 14mg patch - 24hr TD SCH (08:20)
[2021-11-09] MEDS: mineral oil/petrolatum, white cream 113gm jar TP SCH ×2 (08:20→21:25)
[2021-11-09 11:00] VITALS: BP 102/79
[2021-11-09 11:56] LABS: HBSAG SCREEN Negative (Negative); HEP A AB, IGM Negative (Negative); HEPATITIS C ANTIBODY <0.1 s/co ratio (0.0-0.9)
[2021-11-09 15:00] VITALS: BP 97/69
[2021-11-09] MEDS ORDERED: TETanus/Pertussis (Acell)/Diphther VAC/PF (Tdap-Adult) 0.5ml syringe IMVAC ONE (16:55)
[2021-11-09 18:00] VITALS: BP 100/71
--- NOTE | 2021-11-09 19:13 | NUR ---
Dr. Foster made aware via [employer] that patient refused the Diphtheria/pertussis/Tetanus vaccine.
[2021-11-09] MEDS: CLINDAMYCIN 300mg/NS 50ml IVPB 50 ML IV SCH (21:21)
[2021-11-10] MEDS: piperacillin/tazo 3.375gm/50ml 50 ML IV SCH ×3 (01:28→15:57)
[2021-11-10] MEDS: gabapentin 100mg capsule PO SCH ×3 (01:30→15:29)
[2021-11-10] MEDS: CLINDAMYCIN 300mg/NS 50ml IVPB 50 ML IV SCH ×4 (02:37→19:47)
[2021-11-10] MEDS: VANCOMYCIN 1GM/200ML IVPB 200 ML IV SCH ×2 (02:38→14:18)
[2021-11-10] MEDS: temazepam 15mg capsule PO PRN (04:24)
[2021-11-10 06:00] VITALS: BP 115/78
[2021-11-10 06:53] LABS: ALANINE AMINOTRANSFERASE 83 U/L (12-78); ALBUMIN 3.1 G/DL (3.4-5.0); ALBUMIN/GLOBULIN RATIO 0.7 (1.1-1.5); ALKALINE PHOSPHATASE 96 IU/L (46-116); ANION GAP 14 (8-16); ASPARTATE AMINO TRANSFERASE 47 U/L (10-37); BILIRUBIN,TOTAL 1.3 MG/DL (0.1-1.0); BLOOD UREA NITROGEN 33 MG/DL (7-18); BUN/CREATININE RATIO 25.2 (5.4-32.0); CALCIUM 8.3 MG/DL (8.5-10.1); CHLORIDE 100 MMOL/L (99-107); CREATININE 1.31 MG/DL (0.60-1.10); GLUCOSE 88 MG/DL (70-104); MAGNESIUM 2.3 MG/DL (1.5-2.4); POTASSIUM 4.1 MMOL/L (3.5-5.1); SODIUM 137 MMOL/L (135-145); TOTAL CARBON DIOXIDE 22.6 MMOL/L (24-32); TOTAL PROTEIN 7.4 G/DL (6.4-8.2); eGFR 59 ML/MIN
[2021-11-10 07:01] LABS: BASOPHILS # (AUTO) 0.1 X10'3 (0-0.2); BASOPHILS % (AUTO) 0.9 % (0-1); EOSINOPHILS # (AUTO) 0.3 X10'3 (0-0.9); EOSINOPHILS % (AUTO) 2.8 % (0-6); HEMATOCRIT 34.2 % (42.0-52.0); HEMOGLOBIN 11.6 g/dl (14.0-17.9); LYMPHOCYTES # (AUTO) 1.5 X10'3 (1.1-4.8); LYMPHOCYTES % (AUTO) 14.8 % (21-51); MEAN CORPUSCULAR HEMOGLOBIN 29.7 PG (27.0-31.0); MEAN CORPUSCULAR HGB CONC 33.8 g/dL (33.0-36.5); MEAN CORPUSCULAR VOLUME 87.8 FL (78-98); MEAN PLATELET VOLUME 7.9 FL (7.4-10.4); MONOCYTES # (AUTO) 0.9 X10'3 (0-0.9); MONOCYTES % (AUTO) 8.6 % (2-12); NEUTROPHILS # (AUTO) 7.6 X10'3 (1.8-7.7); NEUTROPHILS % (AUTO) 72.9 % (42-75); PLATELET COUNT 340 X10'3 (140-440); RED CELL DISTRIBUTION WIDTH 14.8 % (11.5-14.5); WHITE BLOOD COUNT 10.4 X10'3 (4.5-11.0)
--- NOTE | 2021-11-10 07:13 | NUR ---
Problems reprioritized. Patient report given, questions answered & plan of care reviewed with ISA Altamirano.
[2021-11-10] MEDS: furosemide 40mg/4ml inj IV SCH ×2 (07:32→20:00)
[2021-11-10] MEDS: potassium chloride 10mEq ER tablet PO SCH (07:32)
[2021-11-10] MEDS: carVEDilol 3.125mg tablet PO SCH ×2 (07:32→20:00)
[2021-11-10] MEDS: aspirin 81mg, enteric-coated 1 TAB TABLET.DR PO SCH (07:32)
[2021-11-10] MEDS: nicotine 14mg patch - 24hr TD SCH (07:32)
[2021-11-10] MEDS: cetirizine 10mg tablet PO SCH (07:32)
[2021-11-10] MEDS: levoTHYROXINE 25mcg tablet PO SCH (07:32)
[2021-11-10] MEDS: lisinopril 5mg tablet PO SCH (07:33)
[2021-11-10] MEDS: morphine 2 MG/ML inj. syringe IV PRN (07:34)
[2021-11-10] MEDS: mineral oil/petrolatum, white cream 113gm jar TP SCH ×2 (07:49→20:04)
[2021-11-10] MEDS: docusate sod 100mg capsule PO SCH ×2 (07:49→20:00)
[2021-11-10] MEDS: K and/or MAG REPLACEMENT MC SCH ×2 (08:00→20:00)
--- NOTE | 2021-11-10 10:00 | NUR ---
Patient has a life vest that is in his bag in the room but refusing to wear it. Stating, "I'm already in the hospital, I don't need to wear it." Provider is aware.
--- NOTE | 2021-11-10 10:31 | NUR ---
Initial: Pt admitted w/ congestive heart failure, meth-induced cardiomyopathy, and BLE cellulitis per EMR. Pt currently on Heart Healthy diet w/ mostly 100% intake of meals meeting needs. Pt likely going through withdrawals at this time per MD note. LBM 2/5 receiving routine colace. No nutrition intervention implemented at this time, will continue to monitor. Recs: 1. Continue Heart Healthy diet as tolerated 2. Bowel care per rx 3. Weekly wts Addendum: 11/10/21 at [address] Amended: Links added.
[2021-11-10] MEDS: normal saline 1000ml 1,000 ML IV SCH (10:55)
[2021-11-10 11:00] VITALS: BP 99/66
[2021-11-10] MEDS ORDERED: ipratropium/albuterol 3ml nebule NEB PRN (13:40)
[2021-11-10 15:00] VITALS: BP 108/68
[2021-11-10] MEDS: HYDROcodone/acetaminophen 5mg/325mg tablet PO PRN (15:28)
[2021-11-10 20:00] VITALS: BP 108/73
[2021-11-10] MEDS: enoxaparin 40mg/0.4ml syringe SUBCUT SCH (20:02)
[2021-11-10 22:00] VITALS: BP 108/54
[2021-11-11] VITALS: BP 108/54
[2021-11-11] MEDS: HYDROcodone/acetaminophen 5mg/325mg tablet PO PRN (01:06)
[2021-11-11] MEDS: piperacillin/tazo 3.375gm/50ml 50 ML IV SCH ×2 (01:06→10:17)
[2021-11-11] MEDS: gabapentin 100mg capsule PO SCH ×2 (01:07→08:30)
[2021-11-11 02:00] VITALS: BP 90/62
[2021-11-11] MEDS: CLINDAMYCIN 300mg/NS 50ml IVPB 50 ML IV SCH ×2 (02:28→10:13)
--- NOTE | 2021-11-11 03:27 | NUR ---
Patient transferred to room 355. Vital signs are as follow: Temp 97.9, HR 69, Resp 18, Resp 18, BP 106/54 MAP 73. Report given to ISA Paz. Patient is now awaiting to be transported to the Med-Surg unit in stable condition.
[2021-11-11] MEDS: VANCOMYCIN 1GM/200ML IVPB 200 ML IV SCH (03:49)
[2021-11-11 05:17] VITALS: BP 102/71
[2021-11-11] MEDS: morphine 2 MG/ML inj. syringe IV PRN (05:26)
[2021-11-11 06:16] LABS: BASOPHILS # (AUTO) 0.1 X10'3 (0-0.2); EOSINOPHILS # (AUTO) 0.3 X10'3 (0-0.9); EOSINOPHILS % (AUTO) 2.7 % (0-6); HEMATOCRIT 34.8 % (42.0-52.0); HEMOGLOBIN 11.5 g/dl (14.0-17.9); LYMPHOCYTES # (AUTO) 1.2 X10'3 (1.1-4.8); LYMPHOCYTES % (AUTO) 11.7 % (21-51); MEAN CORPUSCULAR HEMOGLOBIN 29.2 PG (27.0-31.0); MEAN CORPUSCULAR HGB CONC 33.2 g/dL (33.0-36.5); MEAN CORPUSCULAR VOLUME 88.1 FL (78-98); MEAN PLATELET VOLUME 7.9 FL (7.4-10.4); MONOCYTES # (AUTO) 0.7 X10'3 (0-0.9); MONOCYTES % (AUTO) 7.1 % (2-12); NEUTROPHILS # (AUTO) 7.9 X10'3 (1.8-7.7); NEUTROPHILS % (AUTO) 77.5 % (42-75); PLATELET COUNT 334 X10'3 (140-440); RED BLOOD COUNT 3.95 X10'6 (4.70-6.10); RED CELL DISTRIBUTION WIDTH 14.7 % (11.5-14.5); WHITE BLOOD COUNT 10.2 X10'3 (4.5-11.0)
[2021-11-11 06:43] LABS: ALANINE AMINOTRANSFERASE 70 U/L (12-78); ALBUMIN 3.1 G/DL (3.4-5.0); ALBUMIN/GLOBULIN RATIO 0.6 (1.1-1.5); ALKALINE PHOSPHATASE 93 IU/L (46-116); ANION GAP 10 (8-16); ASPARTATE AMINO TRANSFERASE 38 U/L (10-37); BILIRUBIN,TOTAL 1.5 MG/DL (0.1-1.0); BLOOD UREA NITROGEN 33 MG/DL (7-18); BUN/CREATININE RATIO 27.7 (5.4-32.0); CHLORIDE 100 MMOL/L (99-107); CREATININE 1.19 MG/DL (0.60-1.10); GLUCOSE 95 MG/DL (70-104); POTASSIUM 4.4 MMOL/L (3.5-5.1); SODIUM 134 MMOL/L (135-145); TOTAL CARBON DIOXIDE 24.1 MMOL/L (24-32); TOTAL PROTEIN 7.9 G/DL (6.4-8.2); eGFR 66 ML/MIN
--- NOTE | 2021-11-11 06:54 | NUR ---
Patient in room JAMEY 355. I have received report from peggy ni and had the opportunity to ask questions and assume patient care.
[2021-11-11 07:13] VITALS: BP 94/64
[2021-11-11] MEDS: docusate sod 100mg capsule PO SCH (08:00)
[2021-11-11] MEDS: carVEDilol 3.125mg tablet PO SCH (08:00)
[2021-11-11] MEDS: K and/or MAG REPLACEMENT MC SCH (08:00)
[2021-11-11] MEDS: furosemide 40mg/4ml inj IV SCH (08:00)
[2021-11-11] MEDS: lisinopril 5mg tablet PO SCH (08:00)
[2021-11-11] MEDS: aspirin 81mg, enteric-coated 1 TAB TABLET.DR PO SCH (08:30)
[2021-11-11] MEDS: levoTHYROXINE 25mcg tablet PO SCH (08:30)
[2021-11-11] MEDS: cetirizine 10mg tablet PO SCH (08:30)
[2021-11-11] MEDS: potassium chloride 10mEq ER tablet PO SCH (08:30)
[2021-11-11] MEDS: nicotine 14mg patch - 24hr TD SCH (08:31)
[2021-11-11] MEDS: mineral oil/petrolatum, white cream 113gm jar TP SCH (08:58)
[2021-11-11 11:00] VITALS: BP 102/71
[2021-11-11] MEDS ORDERED: CLIN-97 PO (11:41)
[2021-11-11] MEDS ORDERED: NICO-631 TD (11:41)
[2021-11-11] MEDS ORDERED: CETI10TA14 PO (11:41)
--- NOTE | 2021-11-11 14:30 | NUR ---
PT 02 96% RA WHILE AMBULATING. DOES NOT QUALIFY FOR HOME O2.
--- NOTE | 2021-11-11 16:21 | NUR ---
PT DISCHARGED IN STABLE CONDITION. LEFT FACILITY IN PRIVATE VEHICLE WITH . IV DC CANULA INTACT. FOLLOW UP INSTRUCTIONS GIVEN, PT DID NOT QUALIFY FOR O2. PT EDUCATED THAT IF HE FELT HE NEEDED O2 HE COULD PAY OUT OF POCKET. PT STATES HE IS AWARE. FOLLOW UP INSTRUCTIONS GIVEN, ALL QUESTIONS ANSWERED. Addendum: 11/11/21 at 1623 by Qiana Cote RN Amended: Links added.
== END 2021-11-11 16:17 | disposition home or self-care (01) | DRG 194 ==
LOC: ER 06:46 → ED HOLD 10:59 → PCU 3S 17:00 → SUR 3N 11-11 04:55
PROVIDERS: ADMIT Family Medicine; ATTEND Family Medicine
PROC: B32T1ZZ Computerized Tomography (CT Scan) of Left Pulmonary Artery using Low Osmolar Contrast (ICD-10-PCS; principal; 2021-11-06)
PROC: B3201ZZ Computerized Tomography (CT Scan) of Thoracic Aorta using Low Osmolar Contrast (ICD-10-PCS; 2021-11-06)
PROC: B32S1ZZ Computerized Tomography (CT Scan) of Right Pulmonary Artery using Low Osmolar Contrast (ICD-10-PCS; 2021-11-06)
PROC: BQ2S1ZZ Computerized Tomography (CT Scan) of Left Lower Extremity using Low Osmolar Contrast (ICD-10-PCS; 2021-11-08)
PROC: BQ2R1ZZ Computerized Tomography (CT Scan) of Right Lower Extremity using Low Osmolar Contrast (ICD-10-PCS; 2021-11-08)
PROC: BW211ZZ Computerized Tomography (CT Scan) of Abdomen and Pelvis using Low Osmolar Contrast (ICD-10-PCS; 2021-11-08)
DX: I13.0 Hypertensive heart and chronic kidney disease with heart failure and stage 1 through stage 4 chronic kidney disease, or unspecified chronic kidney disease (principal); J96.01 Acute respiratory failure with hypoxia; I21.A1 Myocardial infarction type 2; I42.7 Cardiomyopathy due to drug and external agent; L03.115 Cellulitis of right lower limb; L97.919 Non-pressure chronic ulcer of unspecified part of right lower leg with unspecified severity; E03.9 Hypothyroidism, unspecified; I50.23 Acute on chronic systolic (congestive) heart failure; L03.116 Cellulitis of left lower limb; E78.5 Hyperlipidemia, unspecified; K74.60 Unspecified cirrhosis of liver; K76.0 Fatty (change of) liver, not elsewhere classified; F12.90 Cannabis use, unspecified, uncomplicated; L97.929 Non-pressure chronic ulcer of unspecified part of left lower leg with unspecified severity; F15.10 Other stimulant abuse, uncomplicated; N18.9 Chronic kidney disease, unspecified; Z20.822 Contact with and (suspected) exposure to COVID-19; N49.2 Inflammatory disorders of scrotum; Z88.8 Allergy status to other drugs, medicaments and biological substances; Z79.899 Other long term (current) drug therapy; Z79.82 Long term (current) use of aspirin; Z72.0 Tobacco use
CPT/HCPCS: 36415; 71045; 71275; 73701; 74177; 76700; 80053; 80074; 80202; 80305; 81003; 82140; 83605; 83735; 83880; 84132; 84443; 84484; 85025; 85379; 85610; 85730; 87040; 87081; 87635; 90715; 93005; 94640; 94760; 99291; C9803; G0378; J0696; J1644; J1650; J1940; J2270; J2543; J3370; J3490; J7030; Q9967

== ENCOUNTER 2021-11-17 07:24 | Emergency (ER) | payer MEDICAID ==
[~2021-11-17] VITALS: Ht 180.3 cm; Wt 100.0 kg
[~2021-11-17 07:24] MED LIST changes: -ASPI-1071 PO; +ASPI-611 PO; +CARV3.122 PO; +CETI10TA14 PO; +CLIN-97 PO; -COR3.125T PO; -FURO-149 PO; +FURO40TA4 PO; +GABA-530 PO; -LEVO25TA7 PO; +LEVO50TA8 PO; -LISI-642 PO; +LISI5TAB22 PO; -MULT-1085 PO; +NICO-631 TD; +POTA10CA44 PO; -POTA10TA37 PO
[2021-11-17 07:43] VITALS: BP 131/84
== END 2021-11-17 09:54 | disposition left against medical advice (07) ==
LOC: ER 07:25
DX: R06.02 Shortness of breath (principal); Z53.21 Procedure and treatment not carried out due to patient leaving prior to being seen by health care provider

== ENCOUNTER 2021-11-19 10:17 | Emergency (ER) | payer MEDICAID ==
[~2021-11-19] VITALS: Ht 180.3 cm; Wt 110.0 kg
[2021-11-19] MEDS ORDERED: aspirin 81mg tab.chew PO ONE (10:30)
[2021-11-19 10:54] LABS: BASOPHILS # (AUTO) 0.1 X10'3 (0-0.2); EOSINOPHILS # (AUTO) 0.2 X10'3 (0-0.9); EOSINOPHILS % (AUTO) 2.2 % (0-6); HEMATOCRIT 39.2 % (42.0-52.0); HEMOGLOBIN 12.6 g/dl (14.0-17.9); LYMPHOCYTES % (AUTO) 20.3 % (21-51); MEAN CORPUSCULAR HEMOGLOBIN 27.8 PG (27.0-31.0); MEAN CORPUSCULAR HGB CONC 32.2 g/dL (33.0-36.5); MEAN CORPUSCULAR VOLUME 86.4 FL (78-98); MEAN PLATELET VOLUME 7.3 FL (7.4-10.4); MONOCYTES # (AUTO) 0.8 X10'3 (0-0.9); MONOCYTES % (AUTO) 8.4 % (2-12); NEUTROPHILS # (AUTO) 6.7 X10'3 (1.8-7.7); NEUTROPHILS % (AUTO) 68.1 % (42-75); PLATELET COUNT 467 X10'3 (140-440); RED BLOOD COUNT 4.54 X10'6 (4.70-6.10); RED CELL DISTRIBUTION WIDTH 15.3 % (11.5-14.5); WHITE BLOOD COUNT 9.8 X10'3 (4.5-11.0)
[2021-11-19 10:57] LABS: CLARITY,URINE CLEAR (Clear); COLOR,URINE YELLOW (Yellow); GLUCOSE, URINE NEGATIVE (Neg); KETONES,URINE NEGATIVE (Neg); LEUKOCYTE ESTERASE ,URINE NEGATIVE (Neg); NITRITES, URINE NEGATIVE (Neg); OCCULT BLOOD,URINE NEGATIVE (Neg); PROTEIN,URINE NEGATIVE (Neg); UROBILINOGEN,URINE 0.2 E.U/dL (0.2-1.0)
[2021-11-19 11:04] LABS: UA COLLECTION TYPE VOIDED
[2021-11-19 11:08] LABS: URINE AMPHETAMINE SCREEN POSITIVE (Neg); URINE BARBITUATE SCREEN NEGATIVE (Neg); URINE BENZODIAZEPINES SCREEN NEGATIVE (Neg); URINE CANNABINOID SCREEN POSITIVE (Neg); URINE COCAINE SCREEN NEGATIVE (Neg); URINE METHADONE SCREEN NEGATIVE (Neg); URINE OPIATE SCREEN NEGATIVE (Neg); URINE PHENCYCLIDINE SCREEN NEGATIVE (Neg)
[2021-11-19 11:11] LABS: ANION GAP 13 (8-16); BILIRUBIN,TOTAL 1.6 MG/DL (0.1-1.0); BLOOD UREA NITROGEN 28 MG/DL (7-18); BUN/CREATININE RATIO 21.5 (5.4-32.0); CALCIUM 8.6 MG/DL (8.5-10.1); CHLORIDE 101 MMOL/L (99-107); GLUCOSE 97 MG/DL (70-104); POTASSIUM 4.2 MMOL/L (3.5-5.1); SODIUM 136 MMOL/L (135-145); eGFR 59 ML/MIN
[2021-11-19 11:12] LABS: ALANINE AMINOTRANSFERASE 52 U/L (12-78); ALBUMIN 3.4 G/DL (3.4-5.0); ALBUMIN/GLOBULIN RATIO 0.7 (1.1-1.5); ASPARTATE AMINO TRANSFERASE 31 U/L (10-37); ETHANOL < 0.010 GM/DL (0.0-0.010); TOTAL PROTEIN 8.6 G/DL (6.4-8.2)
[2021-11-19] MEDS ORDERED: CefTRIAXone 2gm/D5W 50ml BAG 50 ML IV ONE (11:45)
[2021-11-19] MEDS ORDERED: CEPH250T PO (12:39)
[2021-11-19] MEDS ORDERED: DOXY100C43 PO (12:39)
[2021-11-19 13:28] VITALS: BP 114/78
== END 2021-11-19 13:29 | disposition home or self-care (01) ==
LOC: ER 10:17
DX: L03.116 Cellulitis of left lower limb (principal); Z20.822 Contact with and (suspected) exposure to COVID-19; L03.115 Cellulitis of right lower limb; F15.10 Other stimulant abuse, uncomplicated; R05.9 Cough, unspecified; R06.00 Dyspnea, unspecified; R00.0 Tachycardia, unspecified; N18.9 Chronic kidney disease, unspecified; I50.9 Heart failure, unspecified; E03.9 Hypothyroidism, unspecified; G89.29 Other chronic pain; F17.200 Nicotine dependence, unspecified, uncomplicated; F12.90 Cannabis use, unspecified, uncomplicated; Z98.890 Other specified postprocedural states; Z72.89 Other problems related to lifestyle; Z88.8 Allergy status to other drugs, medicaments and biological substances; Z79.82 Long term (current) use of aspirin; Z79.2 Long term (current) use of antibiotics; Z79.899 Other long term (current) drug therapy
CPT/HCPCS: 36415; 71045; 80053; 80305; 80320; 81003; 83880; 84484; 85025; 87635; 93005; 96365; 99285; C9803; J0696

== ENCOUNTER 2021-11-21 06:32 | Inpatient (IN) | payer MEDICAID ==
[~2021-11-21] VITALS: Ht 180.3 cm; Wt 50.0 kg
[~2021-11-21 06:32] MED LIST changes: +CEPH250T PO; +DOXY100C43 PO
[2021-11-21 07:19] LABS: BASOPHILS % (AUTO) 0.2 % (0-1); EOSINOPHILS # (AUTO) 0.2 X10'3 (0-0.9); HEMATOCRIT 39.5 % (42.0-52.0); HEMOGLOBIN 12.7 g/dl (14.0-17.9); LYMPHOCYTES # (AUTO) 2.3 X10'3 (1.1-4.8); LYMPHOCYTES % (AUTO) 22.2 % (21-51); MEAN CORPUSCULAR HEMOGLOBIN 27.8 PG (27.0-31.0); MEAN CORPUSCULAR HGB CONC 32.2 g/dL (33.0-36.5); MEAN CORPUSCULAR VOLUME 86.3 FL (78-98); MEAN PLATELET VOLUME 7.3 FL (7.4-10.4); MONOCYTES # (AUTO) 0.9 X10'3 (0-0.9); MONOCYTES % (AUTO) 8.3 % (2-12); NEUTROPHILS # (AUTO) 7.1 X10'3 (1.8-7.7); NEUTROPHILS % (AUTO) 67.3 % (42-75); PLATELET COUNT 436 X10'3 (140-440); RED BLOOD COUNT 4.57 X10'6 (4.70-6.10); RED CELL DISTRIBUTION WIDTH 15.4 % (11.5-14.5); WHITE BLOOD COUNT 10.5 X10'3 (4.5-11.0)
[2021-11-21 07:26] LABS: D-DIMER 1.04 MG/L FEU (0-0.50)
[2021-11-21 07:39] LABS: ALANINE AMINOTRANSFERASE 48 U/L (12-78); ALBUMIN 3.4 G/DL (3.4-5.0); ALBUMIN/GLOBULIN RATIO 0.6 (1.1-1.5); ANION GAP 9 (8-16); ASPARTATE AMINO TRANSFERASE 30 U/L (10-37); BILIRUBIN,TOTAL 1.9 MG/DL (0.1-1.0); BLOOD UREA NITROGEN 33 MG/DL (7-18); BUN/CREATININE RATIO 19.8 (5.4-32.0); CALCIUM 8.6 MG/DL (8.5-10.1); CHLORIDE 102 MMOL/L (99-107); CREATININE 1.67 MG/DL (0.60-1.10); ETHANOL < 0.010 GM/DL (0.0-0.010); GLUCOSE 103 MG/DL (70-104); MAGNESIUM 2.5 MG/DL (1.5-2.4); POTASSIUM 4.3 MMOL/L (3.5-5.1); SODIUM 135 MMOL/L (135-145); TOTAL CARBON DIOXIDE 23.7 MMOL/L (24-32); TOTAL PROTEIN 8.9 G/DL (6.4-8.2); eGFR 44 ML/MIN
[2021-11-21 08:05] LABS: CLARITY,URINE CLEAR (Clear); COLOR,URINE YELLOW (Yellow); GLUCOSE, URINE NEGATIVE (Neg); KETONES,URINE NEGATIVE (Neg); LEUKOCYTE ESTERASE ,URINE NEGATIVE (Neg); NITRITES, URINE NEGATIVE (Neg); OCCULT BLOOD,URINE NEGATIVE (Neg); PROTEIN,URINE NEGATIVE (Neg); URINE AMPHETAMINE SCREEN POSITIVE (Neg); URINE BARBITUATE SCREEN NEGATIVE (Neg); URINE BENZODIAZEPINES SCREEN NEGATIVE (Neg); URINE CANNABINOID SCREEN POSITIVE (Neg); URINE COCAINE SCREEN NEGATIVE (Neg); URINE METHADONE SCREEN NEGATIVE (Neg); URINE OPIATE SCREEN NEGATIVE (Neg); URINE PHENCYCLIDINE SCREEN NEGATIVE (Neg); UROBILINOGEN,URINE 0.2 E.U/dL (0.2-1.0)
[2021-11-21 08:05] LABS: ALKALINE PHOSPHATASE 99 IU/L (46-116)
[2021-11-21 08:11] LABS: UA COLLECTION TYPE CLN CATCH MIDSTREAM
[2021-11-21] MEDS ORDERED: iohexol 350MG/ML 100ml bottle IV ONE (08:19)
[2021-11-21] MEDS ORDERED: furosemide 10 MG/1 ML 10ml inj IV ONE ×2 (10:05→11:15)
[2021-11-21] MEDS ORDERED: HYDROcodone/acetaminophen 10/325mg tab PO PRN (10:20)
[2021-11-21] MEDS ORDERED: mag hydrox/Alum hydrox/simeth 30ml oral suspension PO PRN (10:20)
[2021-11-21] MEDS ORDERED: ondansetron/PF 4mg/2ml inj IV PRN (10:20)
[2021-11-21] MEDS ORDERED: acetaminophen 325mg tablet PO PRN ×2 (10:20)
[2021-11-21] MEDS ORDERED: magnesium hydroxide 30ml (MOM) UD suspension PO PRN (10:20)
[2021-11-21] MEDS ORDERED: magnesium 4gm in 100ml NS 100 ML IV PRN (10:20)
[2021-11-21] MEDS ORDERED: potassium Cl 20 mEq SR tablet PO PRN ×2 (10:20)
[2021-11-21] MEDS ORDERED: magnesium 2GM in 50ml NS 50 ML IV PRN (10:20)
[2021-11-21] MEDS ORDERED: potassium CL 10mEq/100ml bag 100 ML IV PRN (10:20)
[2021-11-21] MEDS ORDERED: HYDROcodone/acetaminophen 5mg/325mg tablet PO PRN (10:20)
[2021-11-21] MEDS ORDERED: furosemide 40mg/4ml inj IV ONE (11:15)
[2021-11-21] MEDS ORDERED: DOXY-327 PO (11:29)
[2021-11-21] MEDS ORDERED: CEPH250C PO (11:29)
[2021-11-21] MEDS ORDERED: CETI10TA19 PO (11:29)
[2021-11-21] MEDS ORDERED: NICO-731 TOP (11:29)
--- NOTE | 2021-11-21 14:26 | NUR ---
Attempted to call report to PCU. On hold for 10 mins. Will retry.
--- NOTE | 2021-11-21 14:32 | NUR ---
Report called to PCU. Pt to floor.
[2021-11-21 15:00] VITALS: BP 111/88
[2021-11-21] MEDS ORDERED: levoFLOXACIN-Levaquin 750MG/D5 150 ML IV STA (15:26)
[2021-11-21] MEDS: gabapentin 100mg capsule PO SCH ×2 (16:16→23:56)
[2021-11-21 18:00] VITALS: BP 110/78
[2021-11-21] MEDS ORDERED: enoxaparin 40mg/0.4ml syringe SQ SCH (20:00)
[2021-11-21] MEDS: docusate sod 100mg capsule PO SCH (20:00)
[2021-11-21] MEDS: K and/or MAG REPLACEMENT MC SCH (20:00)
[2021-11-21] MEDS: carVEDilol 3.125mg tablet PO SCH (20:35)
[2021-11-21] MEDS: furosemide 10 MG/1 ML 10ml inj IV SCH (20:43)
[2021-11-21 22:00] VITALS: BP 121/82
[2021-11-22 02:00] VITALS: BP 138/68
[2021-11-22 06:00] VITALS: BP 119/80
[2021-11-22 06:19] LABS: BASOPHILS # (AUTO) 0.1 X10'3 (0-0.2); BASOPHILS % (AUTO) 1.1 % (0-1); EOSINOPHILS # (AUTO) 0.3 X10'3 (0-0.9); HEMATOCRIT 39.2 % (42.0-52.0); HEMOGLOBIN 12.4 g/dl (14.0-17.9); LYMPHOCYTES # (AUTO) 1.4 X10'3 (1.1-4.8); LYMPHOCYTES % (AUTO) 18.1 % (21-51); MEAN CORPUSCULAR HEMOGLOBIN 27.6 PG (27.0-31.0); MEAN CORPUSCULAR HGB CONC 31.7 g/dL (33.0-36.5); MEAN PLATELET VOLUME 7.6 FL (7.4-10.4); MONOCYTES # (AUTO) 0.8 X10'3 (0-0.9); MONOCYTES % (AUTO) 9.6 % (2-12); NEUTROPHILS # (AUTO) 5.3 X10'3 (1.8-7.7); NEUTROPHILS % (AUTO) 67.2 % (42-75); PLATELET COUNT 356 X10'3 (140-440); RED BLOOD COUNT 4.51 X10'6 (4.70-6.10); RED CELL DISTRIBUTION WIDTH 15.5 % (11.5-14.5); WHITE BLOOD COUNT 7.9 X10'3 (4.5-11.0)
[2021-11-22 06:31] LABS: ALANINE AMINOTRANSFERASE 49 U/L (12-78); ALBUMIN 3.3 G/DL (3.4-5.0); ALBUMIN/GLOBULIN RATIO 0.7 (1.1-1.5); ALKALINE PHOSPHATASE 98 IU/L (46-116); ANION GAP 10 (8-16); ASPARTATE AMINO TRANSFERASE 31 U/L (10-37); BILIRUBIN,TOTAL 1.9 MG/DL (0.1-1.0); BLOOD UREA NITROGEN 33 MG/DL (7-18); CALCIUM 8.6 MG/DL (8.5-10.1); CHLORIDE 99 MMOL/L (99-107); GLUCOSE 71 MG/DL (70-104); MAGNESIUM 2.3 MG/DL (1.5-2.4); POTASSIUM 4.1 MMOL/L (3.5-5.1); SODIUM 136 MMOL/L (135-145); TOTAL CARBON DIOXIDE 26.8 MMOL/L (24-32); eGFR 50 ML/MIN
--- NOTE | 2021-11-22 06:49 | NUR ---
Problems reprioritized. Patient report given, questions answered & plan of care reviewed with ISA Sagastume.
[2021-11-22] MEDS: K and/or MAG REPLACEMENT MC SCH (07:18)
[2021-11-22 07:29] VITALS: BP 119/80
[2021-11-22] MEDS ORDERED: aspirin 81mg, enteric-coated 1 TAB TABLET.DR PO SCH (08:00)
[2021-11-22] MEDS ORDERED: levoTHYROXINE 25mcg tablet PO SCH (08:00)
[2021-11-22] MEDS ORDERED: nicotine 14mg patch - 24hr TD SCH (08:00)
[2021-11-22] MEDS ORDERED: lisinopril 5mg tablet PO SCH (08:00)
[2021-11-22] MEDS ORDERED: cetirizine 10mg tablet PO SCH (08:00)
[2021-11-22] MEDS ORDERED: gabapentin capsule PO (10:08)
[2021-11-22] MEDS ORDERED: LEVO500T90 PO (10:08)
[2021-11-22] MEDS ORDERED: FURO40TA4 PO (10:08)
--- NOTE | 2021-11-22 10:48 | NUR ---
Noted pt with a low BMI of 15.4 using documented wt of 50 kg however wt isn't scaled. Pt recently admitted and had a scaled wt obtained, documented as 103.1 kg taken 2/2 with a chair scale. Current documented wt likely not accurate. Pt with mostly 100% PO intake at previous admit and documented with 75% PO intake first meal this admit. Will continue to follow. Addendum: 11/22/21 at [address] Amended: Links added.
[2021-11-22] MEDS: docusate sod 100mg capsule PO SCH (10:57)
[2021-11-22] MEDS: furosemide 10 MG/1 ML 10ml inj IV SCH (10:57)
[2021-11-22] MEDS: carVEDilol 3.125mg tablet PO SCH (10:57)
[2021-11-22 11:00] VITALS: BP 111/75
--- NOTE | 2021-11-22 12:52 | NUR ---
WOUND INFECTION EDUCATION PROVIDED BY WOUND CARE 1. Patient instructed to call their primary doctor, or go the ED immediately if any of the following symptoms occur: * Increased pain in wound * Increase in drainage from the wound * Redness in the skin surrounding the wound * Warmth in the skin surrounding the wound * Bleeding from the wound * Temperature of 101 or greater 2. If any of these occur while in the hospital tell a nurse immediately. PRESSURE ULCER EDUCATION: DEFINITION: A pressure ulcer is an area of skin that breaks down when you stay in one position too long. The constant pressure against the skin reduces the blood flow to that area and the affected tissue dies. CAUSES: "Being bedridden or in a wheelchair "Fragile skin "Having a chronic condition, such as diabetes or vascular disease "Inability to move certain parts of your body without assistance "Older age "Incontinence of urine or stool SYMPTOMS: "A reddened area that DOES NOT turn white when pressed on - this can be the beginning of a pressure ulcer "A blister, deep sore or a crater - these can be advanced pressure ulcers FIRST AID: "Relieve the pressure on this area "Keep the area clean and dry "Call your primary doctor if you see any of the above symptoms "DO NOT massage the area "DO NOT use a donut shaped or ring shaped pillow- these actually interfere with the blood flow and cause complications PREVENTION: "Check for pressure ulcers everyday "Change position at least every two hours to relieve pressure "Use items that help relieve pressure- pillows, sheepskin, foam padding, and powders. "Keep skin clean and dry "Eat healthy well balanced meals "Exercise daily IF YOU SEE ANY OF THESE SYMPTOMS WHILE IN THE HOSPITAL - TELL YOUR NURSE IMMEDIATELY. IF YOU SEE ANY OF THESE SYMPTOMS WHILE AT HOME OR HAVE ANY QUESTIONS OR CONCERNS ABOUT PRESSURE ULCERS - CALL YOUR PRIMARY DOCTOR IMMEDIATELY. Addendum: 11/22/21 at 1254 by Annette Burks RN Amended: Links added.
[2021-11-22 15:00] VITALS: BP 91/65
[2021-11-22] MEDS ORDERED: gabapentin 300mg capsule PO SCH (16:00)
[2021-11-23] MEDS ORDERED: levoFLOXACIN-Levaquin 750MG/D5 150 ML IV SCH (08:00)
== END 2021-11-22 17:22 | disposition home or self-care (01) | DRG 383 ==
LOC: ER 06:32 → ED HOLD 10:21 → PCU 3S 13:00
PROVIDERS: ADMIT Family Medicine; ATTEND Family Medicine
PROC: B32T1ZZ Computerized Tomography (CT Scan) of Left Pulmonary Artery using Low Osmolar Contrast (ICD-10-PCS; principal; 2021-11-21)
PROC: B3201ZZ Computerized Tomography (CT Scan) of Thoracic Aorta using Low Osmolar Contrast (ICD-10-PCS; 2021-11-21)
PROC: B32S1ZZ Computerized Tomography (CT Scan) of Right Pulmonary Artery using Low Osmolar Contrast (ICD-10-PCS; 2021-11-21)
DX: L03.115 Cellulitis of right lower limb (principal); N17.0 Acute kidney failure with tubular necrosis; E03.9 Hypothyroidism, unspecified; I42.7 Cardiomyopathy due to drug and external agent; L03.116 Cellulitis of left lower limb; Z20.822 Contact with and (suspected) exposure to COVID-19; I50.9 Heart failure, unspecified; M51.36 Other intervertebral disc degeneration, lumbar region; F12.90 Cannabis use, unspecified, uncomplicated; F15.90 Other stimulant use, unspecified, uncomplicated; F17.210 Nicotine dependence, cigarettes, uncomplicated; N18.30 Chronic kidney disease, stage 3 unspecified; G57.93 Unspecified mononeuropathy of bilateral lower limbs; G89.29 Other chronic pain; Z88.8 Allergy status to other drugs, medicaments and biological substances; Z79.899 Other long term (current) drug therapy; Z79.82 Long term (current) use of aspirin; Z71.6 Tobacco abuse counseling
CPT/HCPCS: 36415; 71045; 71275; 80053; 80305; 80320; 81003; 83605; 83735; 83880; 84145; 84484; 85025; 85379; 85610; 87081; 87635; 93005; 99285; C9803; G0378; J1650; J1940; J1956; Q9967

== ENCOUNTER 2023-11-19 01:26 | Inpatient (IN) | payer MEDICAID ==
[2023-11-19] VITALS (14 sets, daily range): BP systolic 103–121; BP diastolic 75–91; PULSE 99–114; RESP 14–71; TEMP 97.3–98.9; O2SAT 95–100
[~2023-11-19] VITALS: Ht 180.3 cm; Wt 85.9 kg
[~2023-11-19 01:26] MED LIST changes: -CEPH250T PO; -CETI10TA14 PO; +CETI10TA19 PO; -CLIN-97 PO; +DOXY-457 PO; -DOXY100C43 PO; -GABA-530 PO; +LEVO-65 PO; -NICO-631 TD; +NICO-731 TOP; -POTA10CA44 PO; +POTA10CA85 PO; +gabapentin capsule PO
[2023-11-19 02:13] LABS: BASOPHILS # (AUTO) 0.1 X10'3 (0-0.2); BASOPHILS % (AUTO) 0.8 % (0-1); EOSINOPHILS # (AUTO) 0.4 X10'3 (0-0.9); HEMATOCRIT 40.5 % (42.0-52.0); HEMOGLOBIN 13.2 g/dl (14.0-17.9); LYMPHOCYTES # (AUTO) 1.9 X10'3 (1.1-4.8); LYMPHOCYTES % (AUTO) 16.1 % (21-51); MEAN CORPUSCULAR HEMOGLOBIN 30.7 PG (27.0-31.0); MEAN CORPUSCULAR HGB CONC 32.6 g/dL (33.0-36.5); MEAN CORPUSCULAR VOLUME 93.9 FL (78-98); MEAN PLATELET VOLUME 7.7 FL (7.4-10.4); MONOCYTES # (AUTO) 0.5 X10'3 (0-0.9); MONOCYTES % (AUTO) 4.6 % (2-12); NEUTROPHILS # (AUTO) 8.7 X10'3 (1.8-7.7); NEUTROPHILS % (AUTO) 75.5 % (42-75); PLATELET COUNT 350 X10'3 (140-440); RED BLOOD COUNT 4.31 X10'6 (4.70-6.10); RED CELL DISTRIBUTION WIDTH 14.4 % (11.5-14.5); WHITE BLOOD COUNT 11.6 X10'3 (4.5-11.0)
[2023-11-19 02:33] LABS: ALBUMIN 3.3 G/DL (3.4-5.0); ANION GAP 13 (8-16); BLOOD UREA NITROGEN 34 MG/DL (7-18); BUN/CREATININE RATIO 24.5 (10.0-20.0); CHLORIDE 107 MMOL/L (99-107); CREATINE KINASE 139 U/L (39-308); CREATININE 1.39 MG/DL (0.60-1.10); GLUCOSE 122 MG/DL (70-104); MAGNESIUM 1.7 MG/DL (1.5-2.4); PRO BRAIN NATRIURETIC PEPTIDE 7059 PG/ML (0-125); SODIUM 139 MMOL/L (135-145); TOTAL CARBON DIOXIDE 18.6 MMOL/L (24-32); eCRCL 68 ML/MIN; eGFR 54 ML/MIN
[2023-11-19] MEDS: piperacillin/tazo 3.375gm/50ml 50 ML IV ONE (02:41)
[2023-11-19] MEDS: furosemide 10 MG/1 ML 10ml inj IV ONE (02:58)
[2023-11-19] MEDS ORDERED: ondansetron 4mg rapidly disintigrating tab PO PRN (03:15)
[2023-11-19] MEDS ORDERED: potassium Cl 40MEQ/1/2NS 520ml 520 ML IV PRN (03:15)
[2023-11-19] MEDS ORDERED: bisacodyl 10mg suppository rectal RC PRN (03:15)
[2023-11-19] MEDS ORDERED: acetaminophen 650mg rectal suppository RC PRN (03:15)
[2023-11-19] MEDS ORDERED: diphenhydrAMINE 25mg capsule PO PRN (03:15)
[2023-11-19] MEDS ORDERED: diphenhydrAMINE 50 mg/ml inj IV PRN (03:15)
[2023-11-19] MEDS ORDERED: potassium Cl 20 mEq SR tablet PO PRN ×2 (03:15)
[2023-11-19] MEDS ORDERED: acetaminophen 325mg tablet PO PRN ×2 (03:15)
[2023-11-19] MEDS ORDERED: HYDROcodone/acetaminophen 5mg/325mg tablet PO PRN (03:15)
[2023-11-19] MEDS ORDERED: magnesium hydroxide 30ml (MOM) UD suspension PO PRN (03:15)
[2023-11-19 03:31] LABS: URINE AMPHETAMINE SCREEN POSITIVE (Neg); URINE BARBITUATE SCREEN NEGATIVE (Neg); URINE BENZODIAZEPINES SCREEN NEGATIVE (Neg); URINE CANNABINOID SCREEN POSITIVE (Neg); URINE COCAINE SCREEN NEGATIVE (Neg); URINE METHADONE SCREEN NEGATIVE (Neg); URINE OPIATE SCREEN NEGATIVE (Neg); URINE PHENCYCLIDINE SCREEN NEGATIVE (Neg)
[2023-11-19 03:35] LABS: APTT 28 SECONDS (22-32); INR 1.2 INR; PROTHROMBIN TIME 12.6 SECONDS (9.0-12.0)
[2023-11-19 03:40] LABS: BILIRUBIN,URINE NEGATIVE (Neg); CLARITY,URINE CLEAR (Clear); COLOR,URINE YELLOW (Yellow); GLUCOSE, URINE NEGATIVE (Neg); KETONES,URINE NEGATIVE (Neg); LEUKOCYTE ESTERASE ,URINE NEGATIVE (Neg); NITRITES, URINE NEGATIVE (Neg); OCCULT BLOOD,URINE NEGATIVE (Neg); PH,URINE 5.5 (4.8-8.0); PROTEIN,URINE 30 mg/dl (Neg); UROBILINOGEN,URINE 0.2 E.U/dL (0.2-1.0)
[2023-11-19 03:42] LABS: UA COLLECTION TYPE CLN CATCH MIDSTREAM
[2023-11-19 03:47] LABS: HYALINE CASTS 0-3 /LPF (NEGATIVE); MUCUS STRANDS NONE SEEN /LPF (Neg); SQUAMOUS EPITHELIAL CELL,UR FEW /LPF (FEW)
[2023-11-19 03:48] LABS: BACTERIA,URINE NONE SEEN /HPF (Neg); RBC,URINE 0-2 /HPF (0-2); WBC,URINE 0-4 /HPF (0-4)
[2023-11-19 03:51] LABS: PHOSPHORUS 4.6 MG/DL (2.3-4.5)
[2023-11-19 03:55] LABS: HEMOGLOBIN A1C 5.2 % (4.5-6.2)
[2023-11-19] MEDS: normal saline 1000ml 1,000 ML IV SCH (04:02)
[2023-11-19] MEDS: furosemide 20 MG/2 ML vial IV SCH (07:24)
[2023-11-19 07:37] LABS: POTASSIUM 3.9 MMOL/L (3.5-5.1); THYROID STIMULATING HORMONE 3.63 ulU/ml (0.34-4.50)
[2023-11-19] MEDS: CefTRIAXone/D5W-Rocephin 1gm 50 ML IV SCH (08:12)
[2023-11-19] MEDS: nicotine 21mg patch - 24 hr TD SCH (08:42)
[2023-11-19] MEDS: pantoprazole 40mg Tablet.DR PO SCH (08:42)
[2023-11-19] MEDS: docusate sod 100mg capsule PO SCH (08:42)
[2023-11-19] MEDS: heparin, porcine 5000 units/ml vial SQ SCH (08:44)
[2023-11-19] MEDS: azithromycin/NS 500mg/250ml 250 ML IV SCH (09:01)
[2023-11-19] MEDS: ipratropium/albuterol 3ml nebule NEB PRN (09:10)
[2023-11-19] MEDS ORDERED: mag hydrox/Alum hydrox/simeth 30ml oral suspension PO PRN (09:55)
[2023-11-19] MEDS: hydrALAZINE 20mg/ml inj. IV ONE (09:55)
[2023-11-19] MEDS: ondansetron/PF 4mg/2ml inj IV PRN (10:28)
[2023-11-19] MEDS: LORazepam 1 MG tablet PO PRN ×2 (10:51→16:23)
[2023-11-19] MEDS: famotidine 20mg tablet PO ONE (10:52)
[2023-11-19] MEDS: mag hydrox/Alum hydrox/simeth 30ml oral suspension PO PRN (10:55)
[2023-11-19 11:01] LABS: ABG HCO3 17.3 mmol/L (22.0-26.0); ABG OXYGEN SATURATION 76.1 % (94-97); ABG PCO2 (T) 30.2 mmHg (35.0-48.0); ABG PH (T) 7.371 (7.340-7.440); ABG PO2 (T) 43.4 mmHg (75.0-100.0); ALLEN'S TEST POSITIVE; FHHb 23.6 % (0.0-5.0); FMetHb 0.3 % (0.0-1.5); FO2Hb 75.1 % (94-97); PATIENT TEMPERATURE 35.7; TOTAL HEMOGLOBIN 14.9 G/dl (14.0-17.9)
[2023-11-19] MEDS ORDERED: iohexol 350MG/ML 100ml bottle IV ONE (11:20)
[2023-11-19] MEDS ORDERED: morphine ORAL 5MG/0.25 ML (Conc. morphine) oral syringe PO PRN (11:50)
[2023-11-19] MEDS: methylPREDNISolone sod succ 125mg/2ml vial IV ONE (13:10)
[2023-11-19] MEDS: morphine 2 MG/ML inj. syringe IV PRN (14:55)
[2023-11-19] MEDS ORDERED: hydrOXYzine 25 MG tablet PO PRN (15:00)
[2023-11-19] MEDS: gabapentin 300mg capsule PO SCH (15:49)
[2023-11-19] MEDS: hydrOXYzine 25 MG tablet PO ONE (15:49)
[2023-11-19] MEDS: methylPREDNISolone sod succ/PF 40mg inj. IV SCH (16:02)
[2023-11-19] MEDS: piperacillin/tazo 3.375gm/50ml 50 ML IV SCH (16:10)
[2023-11-19] MEDS: budesonide 0.5mg/2ml UD nebule IH SCH (19:44)
[2023-11-19] MEDS: carVEDilol 3.125mg tablet PO SCH (20:00)
[2023-11-19] MEDS: sacubitril/valsartan 24mg-26mg tablet PO SCH (20:00)
[2023-11-20] VITALS (12 sets, daily range): BP systolic 95–120; BP diastolic 70–93; PULSE 97–113; RESP 18–22; TEMP 96.7–97.9; O2SAT 94–100
[2023-11-20] MEDS: EMPAGLIFLOZIN 10 MG TABLET PO SCH (07:55)
[2023-11-20] MEDS: levoTHYROXINE 25mcg tablet PO SCH (07:56)
[2023-11-20] MEDS: aspirin 81mg, enteric-coated 1 TAB TABLET.DR PO SCH (07:57)
[2023-11-20 09:07] LABS: BASOPHILS % (AUTO) 0.1 % (0-1); EOSINOPHILS % (AUTO) 0 % (0-6); HEMATOCRIT 43.1 % (42.0-52.0); HEMOGLOBIN 13.9 g/dl (14.0-17.9); LYMPHOCYTES # (AUTO) 0.7 X10'3 (1.1-4.8); LYMPHOCYTES % (AUTO) 5.3 % (21-51); MEAN CORPUSCULAR HEMOGLOBIN 30.4 PG (27.0-31.0); MEAN CORPUSCULAR HGB CONC 32.2 g/dL (33.0-36.5); MEAN CORPUSCULAR VOLUME 94.4 FL (78-98); MEAN PLATELET VOLUME 7.9 FL (7.4-10.4); MONOCYTES # (AUTO) 0.2 X10'3 (0-0.9); MONOCYTES % (AUTO) 1.2 % (2-12); NEUTROPHILS # (AUTO) 12.4 X10'3 (1.8-7.7); NEUTROPHILS % (AUTO) 93.4 % (42-75); PLATELET COUNT 316 X10'3 (140-440); RED BLOOD COUNT 4.57 X10'6 (4.70-6.10); RED CELL DISTRIBUTION WIDTH 14.4 % (11.5-14.5); WHITE BLOOD COUNT 13.2 X10'3 (4.5-11.0)
[2023-11-20 09:28] LABS: ALANINE AMINOTRANSFERASE 11 U/L (12-78); ALBUMIN 3.5 G/DL (3.4-5.0); ALBUMIN/GLOBULIN RATIO 0.7 (1.1-1.5); ALKALINE PHOSPHATASE 83 IU/L (46-116); ANION GAP 15 (8-16); ASPARTATE AMINO TRANSFERASE 17 U/L (10-37); BILIRUBIN,TOTAL 1.8 MG/DL (0.1-1.0); BLOOD UREA NITROGEN 47 MG/DL (7-18); BUN/CREATININE RATIO 19.7 (10.0-20.0); CALCIUM 8.9 MG/DL (8.5-10.1); CHLORIDE 100 MMOL/L (99-107); CHOL/HDL RATIO 6.2 (0.00-4.99); CHOLESTEROL 193 MG/DL (0-200); CREATININE 2.39 MG/DL (0.60-1.10); GLUCOSE 124 MG/DL (70-104); HDL CHOLESTEROL 31 MG/DL (35-60); LDL CHOLESTEROL 146 MG/DL (50-100); POTASSIUM 4.7 MMOL/L (3.5-5.1); SODIUM 140 MMOL/L (135-145); TOTAL CARBON DIOXIDE 25.1 MMOL/L (24-32); TOTAL PROTEIN 8.7 G/DL (6.4-8.2); TRIGLYCERIDES 65 MG/DL (20-135); eCRCL 40 ML/MIN; eGFR 29 ML/MIN
[2023-11-20] MEDS: SINCALIDE IV ONE (18:00)
[2023-11-20] MEDS: NORMAL SALINE IV ONE (18:00)
[2023-11-20] MEDS: gabapentin 300mg capsule PO SCH (20:06)
[2023-11-20] MEDS: albuterol 2.5 MG/3 ML nebule NEB PRN (20:33)
[2023-11-20] MEDS: sacubitril/valsartan 24mg-26mg tablet PO SCH (21:40)
[2023-11-21 02:00] VITALS: BP 103/79; PULSE 87; RESP 18; TEMP 97; O2SAT 91
[2023-11-21 06:00] VITALS: BP 90/64; PULSE 88; RESP 15; TEMP 96.7; O2SAT 99
[2023-11-21 07:14] LABS: BASOPHILS % (AUTO) 0.1 % (0-1); EOSINOPHILS % (AUTO) 0 % (0-6); HEMATOCRIT 39.5 % (42.0-52.0); HEMOGLOBIN 12.8 g/dl (14.0-17.9); LYMPHOCYTES # (AUTO) 0.6 X10'3 (1.1-4.8); MEAN CORPUSCULAR HEMOGLOBIN 30.6 PG (27.0-31.0); MEAN CORPUSCULAR HGB CONC 32.4 g/dL (33.0-36.5); MEAN CORPUSCULAR VOLUME 94.3 FL (78-98); MEAN PLATELET VOLUME 8.1 FL (7.4-10.4); MONOCYTES # (AUTO) 0.3 X10'3 (0-0.9); MONOCYTES % (AUTO) 1.9 % (2-12); PLATELET COUNT 286 X10'3 (140-440); RED BLOOD COUNT 4.18 X10'6 (4.70-6.10); RED CELL DISTRIBUTION WIDTH 15.1 % (11.5-14.5); WHITE BLOOD COUNT 14.9 X10'3 (4.5-11.0)
[2023-11-21 07:45] LABS: ALANINE AMINOTRANSFERASE 12 U/L (12-78); ALBUMIN 3.3 G/DL (3.4-5.0); ALBUMIN/GLOBULIN RATIO 0.7 (1.1-1.5); ALKALINE PHOSPHATASE 68 IU/L (46-116); ANION GAP 12 (8-16); ASPARTATE AMINO TRANSFERASE 10 U/L (10-37); BILIRUBIN,TOTAL 1.1 MG/DL (0.1-1.0); BLOOD UREA NITROGEN 64 MG/DL (7-18); CALCIUM 8.6 MG/DL (8.5-10.1); CHLORIDE 101 MMOL/L (99-107); CREATININE 2.56 MG/DL (0.60-1.10); GLUCOSE 135 MG/DL (70-104); POTASSIUM 4.2 MMOL/L (3.5-5.1); SODIUM 137 MMOL/L (135-145); TOTAL CARBON DIOXIDE 23.7 MMOL/L (24-32); TOTAL PROTEIN 8.1 G/DL (6.4-8.2); eCRCL 37 ML/MIN; eGFR 27 ML/MIN
[2023-11-21 08:40] VITALS: PULSE 103; RESP 18; O2SAT 97
[2023-11-21] MEDS: DOBUTamine-DoBUTrex 500mg/D5W 250 ML IV SCH (08:45)
[2023-11-21 08:49] VITALS: PULSE 86; RESP 17
[2023-11-21 08:55] VITALS: RESP 14; O2SAT 99
[2023-11-21 09:16] LABS: HBSAG SCREEN Negative (Negative); HEP B CORE AB, IGM Negative (Negative); HEP B CORE AB, TOT Negative (Negative)
[2023-11-21] MEDS ORDERED: EMPA10TA PO (10:25)
[2023-11-21] MEDS ORDERED: SACU1TAB PO (10:25)
[2023-11-21] MEDS ORDERED: PRED20TA PO (10:25)
[2023-11-21] MEDS ORDERED: AMOX-117 PO (10:25)
[2023-11-21 11:00] VITALS: BP 97/71; PULSE 94; RESP 21; TEMP 98.2; O2SAT 98
== END 2023-11-21 15:06 | disposition home or self-care (01) | DRG 194 ==
LOC: ER 01:26 → ED HOLD 03:20 → PCU 3S 05:15
PROVIDERS: ADMIT Family Medicine; ATTEND Family Medicine
PROC: B32T1ZZ Computerized Tomography (CT Scan) of Left Pulmonary Artery using Low Osmolar Contrast (ICD-10-PCS; principal; 2023-11-19)
PROC: B3201ZZ Computerized Tomography (CT Scan) of Thoracic Aorta using Low Osmolar Contrast (ICD-10-PCS; 2023-11-19)
PROC: B32S1ZZ Computerized Tomography (CT Scan) of Right Pulmonary Artery using Low Osmolar Contrast (ICD-10-PCS; 2023-11-19)
DX: I50.23 Acute on chronic systolic (congestive) heart failure (principal); J96.00 Acute respiratory failure, unspecified whether with hypoxia or hypercapnia; N17.9 Acute kidney failure, unspecified; K81.0 Acute cholecystitis; I42.7 Cardiomyopathy due to drug and external agent; J44.1 Chronic obstructive pulmonary disease with (acute) exacerbation; E88.09 Other disorders of plasma-protein metabolism, not elsewhere classified; E78.5 Hyperlipidemia, unspecified; J44.0 Chronic obstructive pulmonary disease with (acute) lower respiratory infection; E03.9 Hypothyroidism, unspecified; F15.10 Other stimulant abuse, uncomplicated; Z20.822 Contact with and (suspected) exposure to COVID-19; G62.9 Polyneuropathy, unspecified; F12.10 Cannabis abuse, uncomplicated; I73.00 Raynaud's syndrome without gangrene; N18.9 Chronic kidney disease, unspecified; L30.9 Dermatitis, unspecified; F17.290 Nicotine dependence, other tobacco product, uncomplicated; J20.9 Acute bronchitis, unspecified; J98.4 Other disorders of lung; J11.1 Influenza due to unidentified influenza virus with other respiratory manifestations; Z98.1 Arthrodesis status; Z88.8 Allergy status to other drugs, medicaments and biological substances; Z79.82 Long term (current) use of aspirin; Z79.899 Other long term (current) drug therapy; Z82.49 Family history of ischemic heart disease and other diseases of the circulatory system; Z83.79 Family history of other diseases of the digestive system
CPT/HCPCS: 36415; 36600; 71045; 71275; 76700; 80048; 80053; 80061; 80305; 81001; 82550; 82803; 83036; 83735; 83880; 84100; 84132; 84145; 84443; 84484; 85018; 85025; 85610; 85730; 86704; 86705; 87040; 87081; 87340; 87502; 87503; 87811; 93005; 93306; 93925; 93970; 94640; 94760; 97161; 97530; 99285; A4615; G0378; J0360; J0456; J0696; J1644; J1940; J2270; J2405; J2543; J2920; J2930; J3490; J7030; Q0177; Q9967

== ENCOUNTER 2024-06-22 12:34 | Emergency (ER) | payer MEDICAID ==
[~2024-06-22] VITALS: Ht 177.8 cm; Wt 9.3 kg
[~2024-06-22 12:34] MED LIST changes: -CETI10TA19 PO; -DOXY-457 PO; +EMPA10TA PO; -LEVO-65 PO; -LISI5TAB22 PO; -POTA10CA85 PO; +PRED20TA PO; +SACU1TAB PO
[2024-06-22] MEDS ORDERED: MINO100T10 PO (16:13)
[2024-06-22 16:20] VITALS: BP 128/90; PULSE 100; RESP 16; TEMP 97; O2SAT 98
== END 2024-06-22 16:39 | disposition home or self-care (01) ==
LOC: ER 12:35
DX: L73.2 Hidradenitis suppurativa (principal); I50.9 Heart failure, unspecified; N18.9 Chronic kidney disease, unspecified; E03.9 Hypothyroidism, unspecified; G89.29 Other chronic pain; M54.9 Dorsalgia, unspecified; F17.200 Nicotine dependence, unspecified, uncomplicated; F12.90 Cannabis use, unspecified, uncomplicated; F15.90 Other stimulant use, unspecified, uncomplicated; Z72.89 Other problems related to lifestyle; Z98.890 Other specified postprocedural states; Z88.8 Allergy status to other drugs, medicaments and biological substances; Z79.82 Long term (current) use of aspirin; Z79.899 Other long term (current) drug therapy; Z79.52 Long term (current) use of systemic steroids
CPT/HCPCS: 99283